=== PATIENT | male | born 1940 | race Caucasian/White ===

== ENCOUNTER 2016-07-11 06:16 | Outpatient (CLI) | payer MEDICARE, OTHER | END 2016-07-11 06:17 | disposition home or self-care (01) | DX: E11.65 Type 2 diabetes mellitus with hyperglycemia (principal); Z79.899 Other long term (current) drug therapy ==

== ENCOUNTER 2017-01-15 08:14 | Outpatient (CLI) | payer MEDICARE, OTHER ==
[2017-01-15 15:25] LABS: BILIRUBIN,URINE NEGATIVE (NEGATIVE); PH,URINE 5.5 PH (5.0-7.5); UA w/ MICROSCOPIC CHARGE YES
[2017-01-15 15:47] LABS: UR CULTURE IF IND NOT INDICATED; WBC,URINE 0-3 /HPF (0-3)
== END 2017-01-15 08:15 ==
LOC: LAB.R 08:14
PROVIDERS: ATTEND Physician Assistant Medical
DX: R31.9 Hematuria, unspecified (principal)
CPT/HCPCS: 81001; 81003; 87086

== ENCOUNTER 2017-01-17 16:15 | Outpatient (CLI) | payer MEDICARE, OTHER | END 2017-01-17 16:16 | disposition home or self-care (01) | LOC: LAB.R 16:15 | PROVIDERS: ATTEND Physician Assistant Medical | DX: R31.9 Hematuria, unspecified (principal) | CPT/HCPCS: 87086 ==

== ENCOUNTER 2017-02-20 09:20 | Outpatient (CLI) | payer MEDICARE, OTHER | END 2017-02-20 09:21 | disposition home or self-care (01) | LOC: SC 09:20 | PROVIDERS: ATTEND Internal Medicine Pulmonary Disease | DX: G47.33 Obstructive sleep apnea (adult) (pediatric) (principal) | CPT/HCPCS: 99203; G0463; 99212 ==

== ENCOUNTER 2017-04-02 20:26 | Outpatient (CLI) | payer MEDICARE, OTHER | END 2017-04-02 20:27 | disposition home or self-care (01) | LOC: SC 20:26 | PROVIDERS: ATTEND Internal Medicine Pulmonary Disease | DX: G47.33 Obstructive sleep apnea (adult) (pediatric) (principal); G47.61 Periodic limb movement disorder; Z68.32 Body mass index [BMI] 32.0-32.9, adult | CPT/HCPCS: 95810 ==

== ENCOUNTER 2017-04-18 13:17 | Outpatient (CLI) | payer MEDICARE, OTHER | END 2017-04-18 13:18 | disposition home or self-care (01) | LOC: SC 13:17 | PROVIDERS: ATTEND Nurse Practitioner Family | DX: G47.33 Obstructive sleep apnea (adult) (pediatric) (principal); G47.61 Periodic limb movement disorder | CPT/HCPCS: 99214; G0463; 99212 ==

== ENCOUNTER 2017-06-12 10:47 | Outpatient (CLI) | payer MEDICARE, OTHER | END 2017-06-12 10:48 | disposition home or self-care (01) | LOC: SC 10:47 | PROVIDERS: ATTEND Nurse Practitioner Family | DX: G47.33 Obstructive sleep apnea (adult) (pediatric) (principal) | CPT/HCPCS: 99214; G0463; 99212 ==

== ENCOUNTER 2017-07-17 10:36 | Outpatient (CLI) | payer MEDICARE, OTHER | END 2017-07-17 10:37 | disposition home or self-care (01) | LOC: SC 10:36 | PROVIDERS: ATTEND Nurse Practitioner Family | DX: G47.33 Obstructive sleep apnea (adult) (pediatric) (principal) | CPT/HCPCS: 99214; G0463; 99212 ==

== ENCOUNTER 2017-09-19 10:55 | Outpatient (CLI) | payer MEDICARE, OTHER | END 2017-09-19 10:56 | disposition home or self-care (01) | LOC: SC 10:55 | PROVIDERS: ATTEND Nurse Practitioner Family | DX: G47.33 Obstructive sleep apnea (adult) (pediatric) (principal) | CPT/HCPCS: 99214; G0463; 99212 ==

== ENCOUNTER 2017-10-31 13:36 | Outpatient (CLI) | payer MEDICARE, OTHER | END 2017-10-31 13:37 | disposition home or self-care (01) | LOC: SC 13:36 | PROVIDERS: ATTEND Nurse Practitioner Family | DX: G47.33 Obstructive sleep apnea (adult) (pediatric) (principal) | CPT/HCPCS: 99214; G0463; 99212 ==

== ENCOUNTER 2017-12-12 08:00 | Outpatient (CLI) | payer MEDICARE, OTHER | END 2017-12-12 08:01 | disposition home or self-care (01) | LOC: LAB.R 08:00 | PROVIDERS: ATTEND Internal Medicine | DX: R31.9 Hematuria, unspecified (principal); E11.9 Type 2 diabetes mellitus without complications; Z85.528 Personal history of other malignant neoplasm of kidney | CPT/HCPCS: 87086 ==

== ENCOUNTER 2017-12-12 11:22 | Outpatient (CLI) | payer MEDICARE, OTHER ==
[2017-12-12 11:52] LABS: BASOPHILS # (AUTO) 0.1 10^3/uL (0.0-0.1); BASOPHILS % (AUTO) 0.8 %; EOSINOPHILS # (AUTO) 0.3 10^3/uL (0.0-0.7); EOSINOPHILS % (AUTO) 4.1 %; HGB - HEMOGLOBIN 10.8 g/dL (14.0-18.0); LYMPHOCYTES # (AUTO) 0.9 10^3/uL (1.5-3.5); LYMPHOCYTES % (AUTO) 13.5 %; MEAN CORPUSCULAR HEMOGLOBIN 24.5 pg (27.0-31.0); MEAN CORPUSCULAR HGB CONC 32.1 g/dL (32.0-36.0); MEAN CORPUSCULAR VOLUME 76.5 fL (80.0-94.0); MEAN PLATELET VOLUME 7.8 fL (7.4-11.4); MONOCYTES # (AUTO) 0.4 10^3/uL (0.0-1.0); MONOCYTES % (AUTO) 6.6 %; NEUTROPHILS # (AUTO) 5.1 10^3/uL (1.5-6.6); PLT - PLATELET COUNT 262 10^3/uL (130-450); RED BLOOD COUNT 4.42 10^6/uL (4.70-6.10); RED CELL DISTRIBUTION WIDTH 15.9 % (12.0-15.0); WHITE BLOOD COUNT 6.8 x10^3/uL (4.8-10.8)
[2017-12-12 12:28] LABS: ALBUMIN 3.6 g/dL (3.2-5.5); ALBUMIN/GLOBULIN RATIO 1.1 (1.0-2.2); BILIRUBIN,TOTAL 0.3 mg/dL (0.2-1.0); CREATININE 1.6 mg/dL (0.6-1.2); TOTAL PROTEIN 6.8 g/dL (6.7-8.2)
[2017-12-12 13:32] LABS: HB2 TOTAL 12.2 g/dL; HEMOGLOBIN A1C 0.88 g/dL; HEMOGLOBIN A1C % 8.8 % (4.6-6.2)
== END 2017-12-12 11:23 | disposition home or self-care (01) ==
LOC: LAB 11:22
PROVIDERS: ATTEND Internal Medicine
DX: R31.9 Hematuria, unspecified (principal); E11.9 Type 2 diabetes mellitus without complications; Z85.528 Personal history of other malignant neoplasm of kidney
CPT/HCPCS: 36415; 80053; 83036; 85025; 87086

== ENCOUNTER 2018-01-01 10:12 | Outpatient (CLI) | payer MEDICARE, OTHER | END 2018-01-01 10:13 | disposition home or self-care (01) | LOC: SC 10:12 | PROVIDERS: ATTEND Nurse Practitioner Family | DX: G47.33 Obstructive sleep apnea (adult) (pediatric) (principal) | CPT/HCPCS: 99214; G0463; 99212 ==

== ENCOUNTER 2018-03-12 09:40 | Outpatient (CLI) | payer MEDICARE, OTHER | END 2018-03-12 09:41 | disposition home or self-care (01) | LOC: SC 09:40 | PROVIDERS: ATTEND Nurse Practitioner Family | DX: G47.33 Obstructive sleep apnea (adult) (pediatric) (principal) | CPT/HCPCS: 99214; G0463; 99212 ==

== ENCOUNTER 2018-04-30 06:16 | Outpatient (CLI) | payer MEDICARE, OTHER ==
[2018-04-30 06:37] LABS: CALCIUM 8.9 mg/dL (8.5-10.3); CREATININE 0.8 mg/dL (0.6-1.2)
[2018-04-30 06:44] LABS: HB2 TOTAL 14.1 g/dL; HEMOGLOBIN A1C 1.19 g/dL; HEMOGLOBIN A1C % 9.9 % (4.6-6.2)
== END 2018-04-30 06:17 | disposition home or self-care (01) ==
LOC: LAB 06:16
PROVIDERS: ATTEND Internal Medicine
DX: E11.9 Type 2 diabetes mellitus without complications (principal); Z79.899 Other long term (current) drug therapy
CPT/HCPCS: 36415; 80048; 83036

== ENCOUNTER 2018-06-04 10:57 | Outpatient (CLI) | payer MEDICARE, OTHER | END 2018-06-04 10:58 | disposition home or self-care (01) | LOC: SC 10:57 | PROVIDERS: ATTEND Nurse Practitioner Family | DX: G47.33 Obstructive sleep apnea (adult) (pediatric) (principal) | CPT/HCPCS: 99214; G0463; 99212 ==

== ENCOUNTER 2018-08-06 14:44 | Outpatient (CLI) | payer MEDICARE, OTHER | END 2018-08-06 14:45 | disposition home or self-care (01) | LOC: SC 14:44 | PROVIDERS: ATTEND Nurse Practitioner Family | DX: G47.33 Obstructive sleep apnea (adult) (pediatric) (principal) | CPT/HCPCS: 99215; G0463; 99212 ==

== ENCOUNTER 2018-09-25 13:01 | Outpatient (CLI) | payer MEDICARE, OTHER | END 2018-09-25 13:02 | disposition home or self-care (01) | LOC: SC 13:01 | PROVIDERS: ATTEND Nurse Practitioner Family | DX: G47.33 Obstructive sleep apnea (adult) (pediatric) (principal) | CPT/HCPCS: 99214; G0463; 99212 ==

== ENCOUNTER 2018-10-02 14:44 | Outpatient (CLI) | payer MEDICARE, OTHER ==
[2018-10-02 15:14] LABS: CALCIUM 9.2 mg/dL (8.5-10.3); CREATININE 0.9 mg/dL (0.6-1.2)
[2018-10-02 15:51] LABS: BASOPHILS # (AUTO) 0.1 10^3/uL (0.0-0.1); BASOPHILS % (AUTO) 0.8 %; EOSINOPHILS # (AUTO) 0.3 10^3/uL (0.0-0.7); EOSINOPHILS % (AUTO) 3.8 %; HGB - HEMOGLOBIN 13.6 g/dL (14.0-18.0); LYMPHOCYTES # (AUTO) 1.3 10^3/uL (1.5-3.5); LYMPHOCYTES % (AUTO) 15.8 %; MEAN CORPUSCULAR HEMOGLOBIN 26.6 pg (27.0-31.0); MEAN CORPUSCULAR HGB CONC 32.7 g/dL (32.0-36.0); MEAN CORPUSCULAR VOLUME 81.5 fL (80.0-94.0); MEAN PLATELET VOLUME 8.7 fL (7.4-11.4); MONOCYTES # (AUTO) 0.4 10^3/uL (0.0-1.0); MONOCYTES % (AUTO) 5.4 %; NEUTROPHILS % (AUTO) 74.2 %; PLT - PLATELET COUNT 196 10^3/uL (130-450); RED BLOOD COUNT 5.11 10^6/uL (4.70-6.10); RED CELL DISTRIBUTION WIDTH 16.3 % (12.0-15.0)
[2018-10-02 16:18] LABS: HB2 TOTAL 14.7 g/dL; HEMOGLOBIN A1C 0.81 g/dL; HEMOGLOBIN A1C % 7.2 % (4.6-6.2)
== END 2018-10-02 23:59 | disposition home or self-care (01) ==
LOC: LAB 14:44
PROVIDERS: ATTEND Family Medicine
DX: E11.40 Type 2 diabetes mellitus with diabetic neuropathy, unspecified (principal)
CPT/HCPCS: 36415; 80048; 83036; 85025

== ENCOUNTER 2018-12-04 11:17 | Outpatient (CLI) | payer MEDICARE, OTHER | END 2018-12-04 11:18 | disposition home or self-care (01) | LOC: SC 11:17 | PROVIDERS: ATTEND Nurse Practitioner Family | DX: G47.33 Obstructive sleep apnea (adult) (pediatric) (principal) | CPT/HCPCS: 99214; G0463; 99212 ==

== ENCOUNTER 2019-03-25 13:16 | Outpatient (CLI) | payer MEDICARE, OTHER ==
[2019-03-25 14:19] VITALS: BP 130/56
--- NOTE | 2019-03-25 14:19 | SLEEP CARE CONSULTATION ---
Information from patient questionnaire entered by Celi Ellington. I have reviewed and concur with the information entered by Celi Ellington. This document represents the service I personally performed and the decisions made by me, Jennifer Lyn, RN, MSN, BORING MACHINE FEEDER. History of Present Illness Previous diagnosis: Mild, Obstructive Sleep Apnea-Hypopnea Syndrome AHI: 6.2 Reason for follow up: other (2 month with pressure change) Equipment type: CPAP Equipment obtained from: [employer] Mask style: Nasal pillows Mask brand: Resmed Backup mask available: Yes Last cushion change: 2 weeks ago Prior sleep studies: Yes Year and Where: 2016 [facility] CPAP Compliance Data - Data Reviewed with Patient Average duration of nightly device use: 7h 25m Compliance rate %: 100 Current pressure setting (cmH2O): 11-13 Humidity settin Heated hose settin Average residual AHI: 10 Central apnea: 0.9 Obstructive apnea: 1.4 Hypopnea: 7.7 Average large leak: 26m 34s Subjective Patient concerns: denies: aerophagia, mask discomfort, air blowing in eyes, mask leak noise, condensation in mask/hose, nasal congestion, dry mouth, nose, throat, epistaxis Observed to snore while using device: No Current pressure setting perceived as: comfortable On therapy, patient: reports: sleeping better, awakening more refreshed, being more awake and alert during the day, more rested overall. denies: drowsiness while driving Initial [place] Sleepiness Scale score: 12 Current [place] Sleepiness Scale score: 6 Allergies and Home Medications Known drug allergies: Yes (see list ) Home medication list reviewed: Yes Allergy and home medication list: Medication Name (generic/name brand) Strength & Dosage Lantus Solostar Inject 30units daily at bedtime Metformin 1000mg tab one twice daily Proscar 5mg tab one daily [place]-3 with CoQ10 and Resverital 300mg cap two daily Magnesium 250mg tab two HS MVI Mens 3 tabs daily Berberine Complex, Chromium + Cinnamon 500 mg cap one 3 times daily Vitamin D3 2000IU cap one three times daily Natto Tab two twice daily - out Cinulin + D3 Tab one daily Review of Systems Review of systems same as previous: No (right hip pain - under evaluation) Physical Exam Blood Pressure: 130/56 Cuff size: long Heart Rate: 52 O2 Saturation: 95 Height: 6 ft 3 in Weight: 291 lb 6.4 oz (just went camping with lots of food) Weight change since last visit: gained 8 pounds Body Mass Index: 36.4 BMI Classification: Obesity Class 2 Impression and Plan 1. Obstructive Sleep Apnea-Hypopnea Syndrome, mild, with good treatment compliance and better apnea control. On CPAP therapy, the patient has better sleep quality and is more rested overall. The residual AHI reduced from 12.4 to 10 with recent CPAP pressure adjustment. I will adjust the autoCPAP pressure further to [id number]. Patient advised to contact me if uncomfortable. I will also adjust the ramp to be 1/2 of the prescribed pressure at 7cmH20 and instructed patient how to adjust further for comfort. In addition, I answered questions on how to adjust the heated hose and humidity to comfort on a sample device with rationale explained. Printed instructions given. For supply concerns, he was given supply replacement list was given and questions answered. He is advised to contact [facility] and ask to be put on the supply reminder system. He gained weight at his last camping excursion and advised he is now class 2 obesity. His weight gain can increase his apnea risk and CPAP pressure requirements as well as overall health. He is advised to lose weight and agreed with plan. Patient's apnea severity and rationale for treatment to reduce apnea, improve sleep quality and reduce cardiovascular and cerebrovascular events was reviewed. I also reviewed the benefit of consistent device use of CPAP for his diabetes. * * Change CPAP pressure to 15-18 cmH2O * Contact [facility] for supplies * Adjust humidity and heated hose as needed * Notify me if snoring with mask or feeling that the pressure is too much or too little * Attempt to lose weight * Contact [facility] re supplies * Return for follow up in 1-2months , or sooner if concerns arise I spent 100% of this 27 minute visit face to face with the patient with greater than 50% of this was spent time counseling the patient and coordination of care.
== END 2019-03-25 13:17 | disposition home or self-care (01) ==
LOC: SC 13:16
PROVIDERS: ATTEND Nurse Practitioner Family
DX: G47.33 Obstructive sleep apnea (adult) (pediatric) (principal); E66.9 Obesity, unspecified; Z68.36 Body mass index [BMI] 36.0-36.9, adult
CPT/HCPCS: 99214; G0463; 99212

== ENCOUNTER 2019-05-07 07:42 | Outpatient (CLI) | payer MEDICARE, OTHER ==
[2019-05-07 08:25] LABS: BASOPHILS # (AUTO) 0.1 10^3/uL (0.0-0.1); BASOPHILS % (AUTO) 0.9 %; EOSINOPHILS # (AUTO) 0.2 10^3/uL (0.0-0.7); EOSINOPHILS % (AUTO) 3.9 %; HGB - HEMOGLOBIN 14.4 g/dL (14.0-18.0); LYMPHOCYTES # (AUTO) 0.9 10^3/uL (1.5-3.5); LYMPHOCYTES % (AUTO) 17.5 %; MEAN CORPUSCULAR HGB CONC 31.3 g/dL (32.0-36.0); MEAN CORPUSCULAR VOLUME 86.1 fL (80.0-94.0); MEAN PLATELET VOLUME 10.9 fL (7.4-11.4); MONOCYTES # (AUTO) 0.4 10^3/uL (0.0-1.0); MONOCYTES % (AUTO) 7.2 %; NEUTROPHILS # (AUTO) 3.8 10^3/uL (1.5-6.6); NEUTROPHILS % (AUTO) 69.8 %; PLT - PLATELET COUNT 181 10^3/uL (130-450); RED BLOOD COUNT 5.34 10^6/uL (4.70-6.10); WHITE BLOOD COUNT 5.4 x10^3/uL (4.8-10.8)
[2019-05-07 08:35] LABS: ALBUMIN/GLOBULIN RATIO 1.3 (1.0-2.2); ALKALINE PHOSPHATASE 72 IU/L (42-121); ALT ALANINE AMINOTRANSFERASE 16 IU/L (10-60); AST ASPARTATE AMINOTRANSFERASE 15 IU/L (10-42); BILIRUBIN,TOTAL 0.7 mg/dL (0.2-1.0); BUN - BLOOD UREA NITROGEN 24 mg/dL (6-20); CALCIUM 9.1 mg/dL (8.5-10.3); CARBON DIOXIDE - CO2 32 mmol/L (21-32); CHLORIDE 99 mmol/L (101-111); CHOL/HDL RATIO 4.4 (<5.0); CHOLESTEROL 155 mg/dL; CREATININE 0.8 mg/dL (0.6-1.2); GFR - MDRD 94 (>89); GLUCOSE 185 mg/dL (70-100); HDL CHOLESTEROL 35 mg/dL; LDL CHOLESTEROL,CALCULATED 98 mg/dL; LDL/HDL RATIO 2.8 (<3.6); SODIUM 139 mmol/L (135-145); VLDL CHOLESTEROL 22 mg/dL
[2019-05-07 08:46] LABS: HB2 TOTAL 15.3 g/dL; HEMOGLOBIN A1C 1.13 g/dL; HEMOGLOBIN A1C % 8.9 % (4.6-6.2); THYROID STIMULATING HORMONE 4.46 uIU/mL (0.34-5.60)
[2019-05-07 08:49] LABS: FREE T4 (FREE THYROXINE) 0.76 ng/dL (0.58-1.64)
[2019-05-07 09:45] LABS: FREE T3 3.35 pg/mL (2.5-3.9)
[2019-05-07 14:54] LABS: PSA TOTAL 1.18 ng/mL (0.000-2.000)
== END 2019-05-07 07:43 | disposition home or self-care (01) ==
LOC: LAB 07:42
PROVIDERS: ATTEND Family Medicine
DX: E11.49 Type 2 diabetes mellitus with other diabetic neurological complication (principal); E11.65 Type 2 diabetes mellitus with hyperglycemia; N40.0 Benign prostatic hyperplasia without lower urinary tract symptoms; Z85.528 Personal history of other malignant neoplasm of kidney; G47.30 Sleep apnea, unspecified
CPT/HCPCS: 36415; 80053; 80061; 83036; 83721; 84153; 84439; 84443; 84481; 85025

== ENCOUNTER 2019-05-27 13:41 | Outpatient (CLI) | payer MEDICARE, OTHER ==
[2019-05-27 14:56] VITALS: BP 130/60
--- NOTE | 2019-05-27 14:56 | SLEEP CARE CONSULTATION ---
Information from patient questionnaire entered by Verna Grey. I have reviewed and concur with the information entered by Verna Grey. This document represents the service I personally performed and the decisions made by me, Jennifer Lyn, RN, MSN, PROVIDER RELATIONS REP. History of Present Illness Previous diagnosis: Mild (when re- evaluated and moderate in 2008 with similar weight but apnea severe supine . ), Obstructive Sleep Apnea-Hypopnea Syndrome AHI: 6.2 Reason for follow up: other (2 month) Equipment type: CPAP Equipment obtained from: [employer] Mask style: Nasal pillows Backup mask available: Yes Last cushion change: 2 weeks ago CPAP Compliance Data - Data Reviewed with Patient Average duration of nightly device use: 7.45 Compliance rate %: 100 (60 days) Current pressure setting (cmH2O): 15-18 Humidity settin Heated hose settin Average residual AHI: 9.0 Central apnea: 0.3 Obstructive apnea: 0.5 Hypopnea: 8.2 Average large leak: 3 hr 7 sec Subjective Patient concerns: reports: mask discomfort (one time with medium pillow and too tight of mask ), mask leak noise (having difficulty getting mask to seal as starts treatment), other (spouse has noted him burping in his sleep inter mittently. ). denies: aerophagia, air blowing in eyes, condensation in mask/hose, nasal congestion, dry mouth, nose, throat, epistaxis Observed to snore while using device: Yes (occasionally ) Current pressure setting perceived as: too high On therapy, patient: reports: sleeping better, awakening more refreshed, being more awake and alert during the day, more rested overall. denies: drowsiness while driving Initial [place] Sleepiness Scale score: 12 Current [place] Sleepiness Scale score: 4 Allergies and Home Medications Known drug allergies: Yes Home medication list reviewed: Yes (no changes except insulin increased 35 untils daily, stopped Cinnamon combo) Review of Systems Review of systems same as previous: Yes Physical Exam Blood Pressure: 130/60 Cuff size: long Heart Rate: 51 O2 Saturation: 97 Height: 6 ft 3 in Weight: 293 lb 12.8 oz Weight change since last visit: gained 2 pounds Body Mass Index: 36.7 BMI Classification: Obesity Class 2 Impression and Plan 1. Obstructive Sleep Apnea-Hypopnea Syndrome, mild apnea but severe supine, with good treatment compliance and slightly elevated residual apnea control. On CPAP therapy, the patient has better sleep quality and is more rested overall. The new pressure range only increased mask leaks significantly and reduced residual was only slightly. The pressure is also uncomfortable at times and he is waking to oral venting and burping. Thus after much review of his past visit notes and pressures,I will reduce his CPAP pressure to 10-12 cmH20. He is to contact me if continued burping or oral venting or if pressure change uncomfortable. The patient obtained a CPAP pillow but it did not reduce his mask leaks as had hoped. He has tried to tighten mask with new mask clips. He tried a medium nasal pillow but woke with sore nasal septum. He cleans mask daily which will assist with mask seal and is changing his mask cushions regularly now. I also discussed with him again that if unable to get him to goal with pressure needs, a manual titration study is advised. He seemed more receptive to this gena a if needed. During a titration study, the mask can also be checked and changed for better fit. It is hoped the above measures will resolve burping and reduce residual AHI and mask leaks. I also again reviewed losing weight to reduce apnea severity and CPAP pressure needs. Patient's apnea severity and rationale for treatment to reduce apnea, improve sleep quality and reduce cardiovascular and cerebrovascular events was reviewed. I also reviewed the benefit of consistent device use of CPAP for his diabetes. * * Change autoCPAP pressure to 10-12 cmH2O * Notify me if snoring with mask or feeling that the pressure is too much or too little * Attempt to lose weight * Call this office if any problems using CPAP * Return for follow up in 1-2 months , or sooner if concerns arise Time Spent with Patient (minutes): 33 I spent 100% of this visit face to face with the patient with greater than 50% of this was spent time counseling the patient and coordination of care.
== END 2019-05-27 13:42 | disposition home or self-care (01) ==
LOC: SC 13:41
PROVIDERS: ATTEND Nurse Practitioner Family
DX: G47.33 Obstructive sleep apnea (adult) (pediatric) (principal); E66.9 Obesity, unspecified; Z68.36 Body mass index [BMI] 36.0-36.9, adult
CPT/HCPCS: 99214; G0463; 99212

== ENCOUNTER 2019-05-31 10:54 | Outpatient (CLI) | payer MEDICARE, OTHER ==
--- NOTE | 2019-05-31 22:12 | XRAY Report ---
Reason: LOW BACK PAIN Procedure Date: 05/31/2019 Accession Number: [id number] / [id number] Procedure: XR - Lumbar Spine 2 View CPT Code: Final Report FULL RESULT: EXAM: LUMBOSACRAL SPINE RADIOGRAPHY EXAM DATE: 05/31/2019 11:12 AM. CLINICAL HISTORY: LOW BACK PAIN. COMPARISONS: ABDOMEN/PELVIS W/ 01/05/2016 7:07 PM. TECHNIQUE: 3 views. FINDINGS: Alignment: Grade 1 spondylolisthesis at L5-S1. Mild lumbar dextroscoliosis. Bones: Five [id number] lumbar vertebral bodies are present. No fracture seen. Bilateral L5 pars defects. Disks: Mild to moderate degenerative disk disease at all levels. Facets: Degenerative joint disease in the lower lumbar facet joints. Sacroiliac Joints: Unremarkable. Soft Tissues: Density in the urinary bladder which could represent excreted contrast or milk of calcium. IMPRESSION: 1. Mild lumbar dextroscoliosis. 2. Bilateral L5 pars defects with grade 1 spondylolisthesis at L5-S1. 3. Multilevel degenerative disk disease and degenerative joint disease. RADIA
== END 2019-05-31 10:55 | disposition home or self-care (01) ==
LOC: DI 10:54
PROVIDERS: ATTEND Nurse Practitioner
DX: M51.36 Other intervertebral disc degeneration, lumbar region (principal); M43.06 Spondylolysis, lumbar region; M47.816 Spondylosis without myelopathy or radiculopathy, lumbar region
CPT/HCPCS: 72100

== ENCOUNTER 2019-06-14 12:17 | Outpatient (CLI) | payer MEDICARE, OTHER ==
--- NOTE | 2019-06-14 21:24 | MRI Report ---
Reason: BACK PAIN LUMBAR WITH RADICULOPATHY,HIP JOINT PX R Procedure Date: 06/14/2019 Accession Number: [id number] / [id number] Procedure: MRI - Lumbar Spine W/O CPT Code: Final Report FULL RESULT: EXAM: MRI LUMBAR SPINE WITHOUT CONTRAST EXAM DATE: 06/14/2019 01:25 PM. CLINICAL HISTORY: Increasing low back pain radiating to the right hip. COMPARISON: LUMBAR SPINE 2 VIEW 05/31/2019 11:06 AM ABDOMEN/PELVIS W/ 01/05/2016 7:07 PM. TECHNIQUE: Multiplanar, multisequence T1-weighted and fluid-sensitive sequences of the lumbar spine from the lower portion of T11 to S1 without contrast. Other: None. FINDINGS: Spinal Canal: The conus terminates at L2. The conus medullaris is unremarkable. Alignment: Retrolisthesis at L2-L3 measures 1-2 mm, stable. Grade 1 anterolisthesis at L5-S1 measures 2-3 mm, also stable. Bone Marrow: Five [id number] lumbar vertebral bodies are confirmed on the CT. Mild type I Modic endplate changes are suggested on the right at L5-S1. Small chronic Schmorl's nodes are seen at T11-T12 and L2-L3. Disk Levels/Facets: T11-T12: There is mild right foraminal narrowing due to facet arthropathy. The spinal canal and left foramen are patent. T12-L1: Unremarkable. L1-L2: There is mild right foraminal narrowing due to facet arthropathy. The spinal canal and left foramen are patent. L2-L3: A disk bulge and ligamentum flavum infolding result in mild spinal canal stenosis. There is mild bilateral foraminal narrowing. L3-L4: Ligamentum flavum infolding of facet arthropathy result in mild spinal canal stenosis. There is mild bilateral foraminal narrowing, worse on the right. L4-L5: A disk bulge with facet arthropathy and ligamentum flavum infolding result in mild spinal canal stenosis. Mild fluid is present in the facet joints. There is mild bilateral foraminal narrowing. L5-S1: A disk bulge with facet arthropathy and ligamentum flavum infolding result in mild spinal canal stenosis. There is moderate right and mild left foraminal narrowing. The spinal canal is patent. Musculature: There is mild diffuse fatty atrophy of the posterior paraspinal muscles without intramuscular edema. Other: Moderate size bilateral renal cysts are noted. IMPRESSION: 1. Normal conus medullaris and cauda equina. 2. Mild type I Modic endplate changes are seen on the right at L5-S1. 3. Moderate multilevel degenerative changes are present but there is no high-grade spinal canal stenosis. 4. Moderate right foraminal narrowing is also noted at L5-S1. Comment: The following findings are so common in adults without low back pain that while we report their presence, they must be interpreted with caution and in the context of the clinical situation. (Reference Northk et al, Spine 2001) Prevalence of findings in patients without low back pain: Disk degeneration (any evidence): 92% Disk desiccation/T2 signal loss: 83% Disk height loss: 56% Disk bulge: 64% Disk protrusion: 32% Annular tear/high intensity zone: 38% RADIA
--- NOTE | 2019-06-15 04:48 | XRAY Report ---
Reason: BACK PAIN LUMBAR WITH RADICULOPATHY,HIP JOINT PX R Procedure Date: 06/14/2019 Accession Number: [id number] / [id number] Procedure: XR - Hip w/Pelvis 2-3V RT CPT Code: Final Report FULL RESULT: EXAM: RIGHT HIP RADIOGRAPHY EXAM DATE: 06/14/2019 12:25 PM. CLINICAL HISTORY: BACK PAIN LUMBAR WITH RADICULOPATHY, HIP JOINT PX R. COMPARISON: None. TECHNIQUE: 2 views. FINDINGS: Mild narrowing of both hip joints is seen with small osteophyte formation. The sacroiliac joints are symmetric. There is no evidence of acute fracture or dislocation. The bone mineralization is normal. No focal soft tissue swelling is seen. IMPRESSION: Mild degenerative changes in the hip without evidence of acute fracture or dislocation. RADIA
== END 2019-06-14 12:18 | disposition home or self-care (01) ==
LOC: DI 12:17
PROVIDERS: ATTEND Nurse Practitioner
DX: M51.16 Intervertebral disc disorders with radiculopathy, lumbar region (principal); M48.061 Spinal stenosis, lumbar region without neurogenic claudication; M16.11 Unilateral primary osteoarthritis, right hip
CPT/HCPCS: 72148

== ENCOUNTER 2019-07-22 13:59 | Outpatient (CLI) | payer MEDICARE, OTHER ==
[2019-07-22 14:49] VITALS: BP 142/68
--- NOTE | 2019-07-22 14:49 | SLEEP CARE CONSULTATION ---
Information from patient questionnaire entered by Celi Ellington. I have reviewed and concur with the information entered by Celi Ellington. This document represents the service I personally performed and the decisions made by me, Jennifer Lyn, RN, MSN, MANAGER OF PATIENT. History of Present Illness Previous diagnosis: Mild, Obstructive Sleep Apnea-Hypopnea Syndrome AHI: 6.2 Reason for follow up: other (2 month with pressure change) Equipment type: CPAP Equipment obtained from: [employer] Mask style: Nasal pillows Backup mask available: Yes (old mask ) Last cushion change: a couple of weeks ago Prior sleep studies: Yes HPI additional information: The CPAP pressure was reduced to [id number] as previous pressure was causing significant mask leaks. Current pressure much more comfortable and not waking to mask leaks as before. Aerophagia was resolved with new pressure. CPAP Compliance Data - Data Reviewed with Patient Average duration of nightly device use: 7H 35M Compliance rate %: 100 Current pressure setting (cmH2O): 10-12 Humidity settin Heated hose settin Average residual AHI: 11.1 Central apnea: 1.2 Obstructive apnea: 1.4 Hypopnea: 8.5 Average large leak: 31M 8S Subjective Patient concerns: denies: aerophagia, mask discomfort, air blowing in eyes, mask leak noise, condensation in mask/hose, nasal congestion, dry mouth, nose, throat , epistaxis Observed to snore while using device: Yes (once only ) Current pressure setting perceived as: comfortable On therapy, patient: reports: sleeping better, awakening more refreshed, being more awake and alert during the day, more rested overall. denies: drowsiness while driving Initial [place] Sleepiness Scale score: 12 Current [place] Sleepiness Scale score: 6 Allergies and Home Medications Known drug allergies: Yes (hydrocodone - mild) Home medication list reviewed: Yes (see changes noted stopped many supplements etc) Allergy and home medication list: Medication Name (generic/name brand) Strength & Dosage Lantus Solostar Inject 20units daily at bedtime Metformin 1000mg tab one twice daily Proscar 5mg tab one daily [place]-3 with CoQ10 and Resverital 300mg cap two daily Magnesium 250mg tab 2 in AM and 2 PM MVI Mens 3 tabs daily Vitamin D3 2000IU cap one three times daily Review of Systems Review of systems same as previous: No (exacerbation of low back and hip pain / studies and PT) Physical Exam Blood Pressure: 142/68 Cuff size: wrist Heart Rate: 55 O2 Saturation: 96 Height: 6 ft 3 in Weight: 290 lb 9.6 oz Weight change since last visit: lost 3 pounds Body Mass Index: 36.3 BMI Classification: Obese Impression and Plan 1. Obstructive Sleep Apnea-Hypopnea Syndrome, mild with severe supine, with good treatment compliance and continued elevation of residual apnea. On CPAP therapy, the patient has better sleep quality and is more rested overall. Reduction of autoCPAP range resolved aerophagia and reduced mask leaks significantly but residual AHI is now 11 instead of 9. Thus after review again of his past CPAP range results, sleep studies, it was decided to try [id number] to see if any better. Patient does not want to have sleep study at this time. He is benefiting from treatment and residual is in mild range which is not associated with risks of moderate to severe apnea. He is to contact me if the pressure range is uncomfortable. I showed him how to track his mask fit as well as his AHI on a sample CPAP. His mask fit is better with lower pressure and his goal is to have at least a 90% mask fit. His goal of AHI is less than 5. Patient's apnea severity and rationale for treatment to reduce apnea, improve sleep quality and reduce cardiovascular and cerebrovascular events was reviewed. I also reviewed the benefit of consistent device use of CPAP for hypertension, diabetes. * * Change CPAP pressure to 12-14 cmH2O * Notify me if snoring with mask or feeling that the pressure is too much or too little * Attempt to lose weight * Call this office if any problems using CPAP * Return for follow up in 2-3 months, or sooner if concerns arise Time Spent with Patient (minutes): 35 I spent 100% of this visit face to face with the patient with greater than 50% of this was spent time counseling the patient and coordination of care.
== END 2019-07-22 14:00 | disposition home or self-care (01) ==
LOC: SC 13:59
PROVIDERS: ATTEND Nurse Practitioner Family
DX: G47.33 Obstructive sleep apnea (adult) (pediatric) (principal); E66.9 Obesity, unspecified; Z68.36 Body mass index [BMI] 36.0-36.9, adult
CPT/HCPCS: 99212; 99214

== ENCOUNTER 2020-01-28 13:38 | Outpatient (CLI) | payer MEDICARE, OTHER ==
--- NOTE | 2020-01-28 14:10 | SLEEP CARE CONSULTATION ---
Information from patient questionnaire entered by Verna Grey. I have reviewed and concur with the information entered by Verna Grey. This document represents the service I personally performed and the decisions made by me, Jennifer Lyn, RN, MSN, ASSET ADMINISTRATOR. History of Present Illness Service Date and Time: 01/28/2020 1338 Previous diagnosis: Moderate, Obstructive Sleep Apnea-Hypopnea Syndrome AHI: 26.4 (in 2008) Reason for follow up: other (2 month with pressure change) Equipment type: CPAP Equipment obtained from: [employer] Mask style: Nasal pillows Backup mask available: Yes (old mask ) Last cushion change: a couple weeks ago Prior sleep [facility]: Yes [facility] Type of Sleep Study: Polysomnography HPI additional information: He did not get a new mask fitting. He just obtained new supplies and has not yet opened new mask. Sleep Study - Results Prior sleep studies: Yes [facility] CP[facility] Compliance Data - Data Reviewed with Patient Average duration of nightly device use: 7.25 Compliance rate %: 93.3 (60 days) Current pressure setting (cmH2O): 12-14 Humidity settin Heated hose settin Average residual AHI: 10.8 Average large leak: 1 hr 32 min 59 sec Subjective Patient concerns: reports: mask leak noise (intermittently ), nasal congestion (mild). denies: aerophagia, mask discomfort, air blowing in eyes, condensation in mask/hose, dry mouth, nose, throat, epistaxis Observed to snore while using device: No Current pressure setting perceived as: comfortable (likes current pressure the best so far) On therapy, patient: reports: sleeping better, awakening more refreshed, being more awake and alert during the day, more rested overall. denies: drowsiness while driving Initial [place] Sleepiness Scale score: 12 (in 2009) Allergies and Home Medications Known drug allergies: Yes Home medication list reviewed: No (no changes ) Review of Systems Review of systems same as previous: No (cortisone shots for back pain/ bone spurs surgery planned) Physical Exam Height: 6 ft 3 in Weight: 278 lb Body Mass Index: 34.7 BMI Classification: Obese Impression and Plan 1. Obstructive Sleep Apnea-Hypopnea Syndrome, moderate, with good treatment compliance and mild elevation of residual AHI. apnea control. On CPAP therapy, the patient has better sleep quality and is more rested overall. The patient is comfortable with this pressure range but residual AHI is no better than last visit that appears to be due to continued and worsened mask leaks. The patient admits to waking with mask leaks from the nose piece not setting up enough in nares and adjusts with resolution. However, he does not wake often to his mask leaks so this is not corrected often to have any improvement. Thus I again suggested a mask refitting with rationale discussed and he agreed with plan. He was just sent new supplies so he is advised not to open and contact [facility] for a mask refitting for new mask style or better fit of current mask. He is also advised to check his CPAP data daily to track his mask leaks so he can adjust mask for next night of use if needed. I again reviewed that if unable to get his AHI to optimal goal, a titration study is recommended. He is advised to continue to lose weight and exercise for overall health benefit and reduction of AHI. Patient's apnea severity and rationale for treatment to reduce apnea, improve sleep quality and reduce cardiovascular and cerebrovascular events was reviewed. I also reviewed the benefit of consistent device use of CPAP for hypertension, diabetes, . * Continue auto CPAP pressure at 12-14 cmH2O * mask refitting * Notify me if snoring with mask or feeling that the pressure is too much or too little * Attempt to lose weight * Call this office if any problems using CPAP * Return for follow up in 2 months , or sooner if concerns arise Visit Type: Telehealth Phone Patient agrees and consents to this telehealth visit type: Yes Patient agrees to have their insurance billed: Yes Time Spent with Patient (minutes): 13 Provider Statement: I spent 100% of the Telehealth Phone Call with the patient with greater than 50% spent counseling the patient and coordination of care.
== END 2020-01-28 13:39 | disposition home or self-care (01) ==
LOC: SC 13:38
PROVIDERS: ATTEND Nurse Practitioner Family
DX: G47.33 Obstructive sleep apnea (adult) (pediatric) (principal); E66.9 Obesity, unspecified; Z68.34 Body mass index [BMI] 34.0-34.9, adult

== ENCOUNTER 2020-08-02 07:15 | Outpatient (CLI) | payer MEDICARE, OTHER ==
[2020-08-02 08:03] LABS: % IRON SATURATION 11 % (20-50); BUN - BLOOD UREA NITROGEN 24 mg/dL (6-20); CALCIUM 8.8 mg/dL (8.5-10.3); CARBON DIOXIDE - CO2 25 mmol/L (21-32); CHLORIDE 104 mmol/L (101-111); CHOL/HDL RATIO 5.3 (<5.0); CHOLESTEROL 169 mg/dL; CREATININE 0.8 mg/dL (0.6-1.2); GFR - MDRD 93 (>89); GLUCOSE 150 mg/dL (70-100); HDL CHOLESTEROL 32 mg/dL; IRON 44 ug/dL (45-182); LDL CHOLESTEROL,CALCULATED 104 mg/dL; LDL/HDL RATIO 3.3 (<3.6); POTASSIUM 4.2 mmol/L (3.5-5.0); SODIUM 137 mmol/L (135-145); TOTAL IRON BINDING CAPACITY 391 ug/dL (250-450); TRANSFERRIN 279 mg/dL (180-329); TRIGLYCERIDES 166 mg/dL; VLDL CHOLESTEROL 33 mg/dL
[2020-08-02 08:08] LABS: CREATININE,URINE 103.7 mg/dL; MICROALBUM/CREATININE RATIO,UR 16.4 ug/mg (<30.0); MICROALBUMIN,URINE 1.7 mg/dL (0-300.0)
[2020-08-02 08:14] LABS: THYROID STIMULATING HORMONE 6.36 uIU/mL (0.34-5.60)
[2020-08-02 08:20] LABS: FERRITIN 13.7 ng/mL (23.9-336.2)
[2020-08-02 09:02] LABS: PSA FREE 0.35 ng/mL (0.16-2.81)
[2020-08-02 09:03] LABS: PSA TOTAL 1.38 ng/mL (0.000-2.000)
[2020-08-02 09:39] LABS: FREE T4 (FREE THYROXINE) 0.74 ng/dL (0.58-1.64)
[2020-08-02 12:18] LABS: ESTIMATED AVERAGE GLUCOSE 157 mg/dL (70-100); HEMOGLOBIN A1c% 7.1 % (4.27-6.07)
== END 2020-08-02 07:16 | disposition home or self-care (01) ==
LOC: LAB 07:15
PROVIDERS: ATTEND Nurse Practitioner
DX: E11.8 Type 2 diabetes mellitus with unspecified complications (principal); E66.01 Morbid (severe) obesity due to excess calories; E03.9 Hypothyroidism, unspecified; D64.9 Anemia, unspecified; N40.0 Benign prostatic hyperplasia without lower urinary tract symptoms
CPT/HCPCS: 36415; 80048; 80061; 82043; 82570; 82728; 83036; 83540; 83721; 84153; 84154; 84439; 84443; 84466

== ENCOUNTER 2020-08-30 11:43 | Outpatient (CLI) | payer MEDICARE, OTHER ==
--- NOTE | 2020-08-30 15:17 | Ultrasound Report ---
PROCEDURE: Duplex Ext Veins Right INDICATIONS: R LEG PAIN, VENOUS INSUFFICIENCY, DM TYPE 2 TECHNIQUE: Real-time imaging, as well as color and pulse Doppler interrogation, were performed of the lower extr emity deep veins from the inguinal ligament to the popliteal fossa. COMPARISON: None. FINDINGS: The deep veins are normally compressible, and free of intraluminal thrombus. Color and pu lse Doppler demonstrate normal phasic intraluminal flow. There is normal augmentation response to di stal compression maneuver. Reflux is noted in the right superficial femoral vein distal segment and right popliteal vein. IMPRESSION: No DVT in the right lower extremity. Reviewed by: Luis Miguel Youssef on 08/30/2020 3:15 PM PDT Approved by: Luis Miguel Youssef on 08/30/2020 3:15 PM PDT Station ID: [id number]
--- NOTE | 2020-08-30 16:23 | Ultrasound Report ---
PROCEDURE: Ankle Brachial Index INDICATIONS: R LEG PAIN, VENOUS INSUFFICIENCY, DM TYPE 2 TECHNIQUE: Ankle-brachial indices were obtained bilaterally and recorded. COMPARISONS: None. FINDINGS: Right ankle brachial index (RAMSES): 1.23 Left ankle brachial index (RAMSES): 1.1 IMPRESSION: Ankle-brachial brachial indices are within normal limits. Reviewed by: Jazmín Epperson MD on 08/30/2020 4:22 PM PDT Approved by: Jazmín Epperson MD on 08/30/2020 4:22 PM PDT Station ID: [id number]
== END 2020-08-30 11:44 | disposition home or self-care (01) ==
LOC: DI 11:43
PROVIDERS: ATTEND Nurse Practitioner
DX: M79.604 Pain in right leg (principal); I87.2 Venous insufficiency (chronic) (peripheral); E11.65 Type 2 diabetes mellitus with hyperglycemia
CPT/HCPCS: 93922

== ENCOUNTER 2020-10-04 06:24 | Day surgery (SDC) | payer MEDICARE, OTHER ==
[2020-10-04] MEDS ORDERED: LACTATED RINGERS 1,000 ML IV ONE (06:29)
--- NOTE | 2020-10-04 07:52 | ANESTHESIA ---
Pre-Anesthesia VS, & Labs - Diagnosis history of colon polyps, screening exam - Procedure colonoscopy Vital Signs: Temp Pulse Resp BP Pulse Ox 36 C L 50 L 14 144/73 H 98 10/04/20 06:30 10/04/20 06:30 10/04/20 06:30 10/04/20 06:30 10/04/20 06:30 Height: 6 ft 3 in Weight (kg): 129.8 kg Body Mass Index: 35.7 BMI Classification: Obese - NPO >8 hours - Lab Results Current Lab Results: Laboratory Tests 10/04/20 06:55: POC Whole Bld Glucose 101 H Home Medications and Allergies Home Medications: Ambulatory Orders Finasteride [Proscar] 5 mg PO DAILY 10/04/20 Gabapentin [Gralise] 300 mg PO BID 10/04/20 Multivitamin 1 tab PO DAILY 10/04/20 metFORMIN [Glucophage] 1,000 mg PO BID 03/04/15 Berberine/ Cinnamon/ Chromium 1 tab PO TID 06/26/18 Cholecalciferol (Vitamin D3) [Vitamin D] 2,000 unit PO BID 06/26/18 Insulin Glargine [Lantus Solostar] 28 units SQ DAILY PM 06/26/18 Krill Oil/[place]-3/Dha/Epa [[place]-3 Krill Oil Softgel] 1 each PO DAILY 06/26/18 Magnesium 500 mg PO DAILY 06/26/18 Finasteride [Proscar] 5 mg PO DAILY 10/04/20 Gabapentin [Gralise] 300 mg PO BID 10/04/20 Multivitamin 1 tab PO DAILY 10/04/20 Allergies/Adverse Reactions: Allergies Allergy/AdvReac Type Severity Reaction Status Date / Time hydrocodone AdvReac Mild Unknown Verified 06/26/18 11:31 Anes History & Medical History - Anesthetic History Anesthesia Complications: reports: No previous complications - Medical History Cardiovascular: reports: None Pulmonary: reports: Sleep apnea, CPAP use Gastrointestinal: reports: Colon polyps Urinary: reports: Benign prostate hypertrophy, Renal insuffiency Neuro: reports: None Musculoskeletal: reports: None Endocrine/Autoimmune: reports: Type 2 diabetes Blood Disorders: reports: Anemia Skin: reports: None Smoking Status: Never smoker Psychosocial: reports: Alcohol (daily glass of wine) History of Cancer?: Yes (kidney cancer, removed with surgery) - Surgical History General: reports: Colonoscopy Other Past Surgical History: Left partial nephrectomy Exam General: Alert, Oriented x3, Cooperative, No acute distress Dental: Other (overbite) Mouth Openin Fingerbreadth Neck Mobility: Normal Mallampati classification: III Thyromental Distance: 4-6 cm Mental/Cognitive Status: Alert/Oriented X3, Normal for patient Plan Anesthesia Type: Total IV Consent for Procedure(s) Verified and Reviewed: Yes Code Status: Attempt Resuscitation ASA classification: 2-Mild systemic disease Is this case an emergency?: No
[2020-10-04] MEDS ORDERED: ONDANSETRON 4 MG/2 ML VIAL IVP PRN (09:04)
[2020-10-04] MEDS ORDERED: NALOXONE 0.4 MG/ML VIAL IVP PRN (09:04)
[2020-10-04] MEDS ORDERED: ATROPINE ABBOJECT 1 MG/10 ML SYRINGE IVP PRN (09:04)
[2020-10-04] MEDS ORDERED: LACTATED RINGERS 300 ML IV ONE (09:11)
[2020-10-04 09:31] VITALS: BP 150/85
[2020-10-04] MEDS ORDERED: LACTATED RINGERS 1,000 ML IV SCH (10:00)
--- NOTE | 2020-10-04 11:20 | ANESTHESIA POST OP EVALUATION ---
Anesthesia Post Eval - Post Anesthesia Eval Vitals: Last Vital Signs Temp 36.0 C L 10/04/20 09:30 Pulse 49 L 10/04/20 09:30 Resp 16 10/04/20 09:30 BP 150/85 H 10/04/20 09:30 Pulse Ox 99 10/04/20 09:30 CV Function Including HR & BP: Stable Pain Control: Satisfactory Nausea & Vomiting: Negative Mental Status: Baseline Respiratory Status: Airway Patent Hydration Status: Satisfactory Anesthesia Complications: None
== END 2020-10-04 06:25 | disposition home or self-care (01) ==
LOC: SDS 06:24
PROVIDERS: ATTEND Surgery
PROC: 0DBL8ZZ Excision of Transverse Colon, Via Natural or Artificial Opening Endoscopic (ICD-10-PCS; 2020-10-04)
PROC: 0DBN8ZZ Excision of Sigmoid Colon, Via Natural or Artificial Opening Endoscopic (ICD-10-PCS; 2020-10-04)
PROC: 0DBM8ZZ Excision of Descending Colon, Via Natural or Artificial Opening Endoscopic (ICD-10-PCS; principal; 2020-10-04 07:30)
DX: Z12.11 Encounter for screening for malignant neoplasm of colon (principal); D12.4 Benign neoplasm of descending colon; D12.3 Benign neoplasm of transverse colon; K63.5 Polyp of colon; K64.5 Perianal venous thrombosis; G47.33 Obstructive sleep apnea (adult) (pediatric); E66.9 Obesity, unspecified; Z68.35 Body mass index [BMI] 35.0-35.9, adult; Z80.0 Family history of malignant neoplasm of digestive organs
CPT/HCPCS: 45385; J7120

== ENCOUNTER 2020-11-02 07:10 | Outpatient (CLI) | payer MEDICARE, OTHER ==
[2020-11-02 07:40] LABS: BASOPHILS # (AUTO) 0.1 10^3/uL (0.0-0.1); BASOPHILS % (AUTO) 0.9 %; EOSINOPHILS # (AUTO) 0.3 10^3/uL (0.0-0.7); EOSINOPHILS % (AUTO) 4.4 %; HCT - HEMATOCRIT 45.4 % (42.0-52.0); HGB - HEMOGLOBIN 15.1 g/dL (14.0-18.0); LYMPHOCYTES # (AUTO) 1.3 10^3/uL (1.5-3.5); LYMPHOCYTES % (AUTO) 20.7 %; MEAN CORPUSCULAR HEMOGLOBIN 28.8 pg (27.0-31.0); MEAN CORPUSCULAR HGB CONC 33.3 g/dL (32.0-36.0); MEAN CORPUSCULAR VOLUME 86.6 fL (80.0-94.0); MEAN PLATELET VOLUME 10.5 fL (7.4-11.4); MONOCYTES # (AUTO) 0.4 10^3/uL (0.0-1.0); MONOCYTES % (AUTO) 6.9 %; NEUTROPHILS # (AUTO) 4.2 10^3/uL (1.5-6.6); NEUTROPHILS % (AUTO) 66.3 %; PLT - PLATELET COUNT 227 10^3/uL (130-450); RED BLOOD COUNT 5.24 10^6/uL (4.70-6.10); RED CELL DISTRIBUTION WIDTH 14.5 % (12.0-15.0); WHITE BLOOD COUNT 6.4 x10^3/uL (4.8-10.8)
[2020-11-02 07:50] LABS: POTASSIUM 4.3 mmol/L (3.5-5.0)
[2020-11-02 13:01] LABS: ESTIMATED AVERAGE GLUCOSE 192 mg/dL (70-100); HEMOGLOBIN A1c% 8.3 % (4.27-6.07)
== END 2020-11-02 07:11 | disposition home or self-care (01) ==
LOC: LAB 07:10
PROVIDERS: ATTEND Family Medicine
DX: N40.0 Benign prostatic hyperplasia without lower urinary tract symptoms (principal); D64.9 Anemia, unspecified
CPT/HCPCS: 36415; 80048; 83036; 83540; 84466; 85025

== ENCOUNTER 2021-02-09 07:48 | Outpatient (CLI) | payer MEDICARE, OTHER ==
[2021-02-09 08:14] LABS: CALCIUM 9.1 mg/dL (8.5-10.3); CREATININE 0.9 mg/dL (0.6-1.2); POTASSIUM 4.4 mmol/L (3.5-5.0)
[2021-02-09 08:57] LABS: ESTIMATED AVERAGE GLUCOSE 194 mg/dL (70-100); HEMOGLOBIN A1c% 8.4 % (4.27-6.07)
== END 2021-02-09 07:49 | disposition home or self-care (01) ==
LOC: LAB 07:48
PROVIDERS: ATTEND Family Medicine
DX: E11.8 Type 2 diabetes mellitus with unspecified complications (principal); G47.30 Sleep apnea, unspecified
CPT/HCPCS: 36415; 80048; 83036

== ENCOUNTER 2021-05-12 09:40 | Outpatient (CLI) | payer MEDICARE, OTHER ==
[2021-05-12 10:03] LABS: CREATININE 0.9 mg/dL (0.6-1.2); POTASSIUM 4.6 mmol/L (3.5-5.0)
[2021-05-12 12:53] LABS: ESTIMATED AVERAGE GLUCOSE 166 mg/dL (70-100); HEMOGLOBIN A1c% 7.4 % (4.27-6.07)
== END 2021-05-12 09:41 | disposition home or self-care (01) ==
LOC: LAB 09:40
PROVIDERS: ATTEND Family Medicine
DX: E11.42 Type 2 diabetes mellitus with diabetic polyneuropathy (principal)
CPT/HCPCS: 36415; 80048; 83036

== ENCOUNTER 2021-06-09 10:50 | Outpatient (CLI) | payer MEDICARE, OTHER ==
[2021-06-09 11:37] VITALS: BP 151/77
--- NOTE | 2021-06-09 11:37 | SLEEP CARE CONSULTATION ---
Information from patient questionnaire entered by Manuel Barnes MA. I have reviewed and concur with the information entered by Manuel Barnes MA. This document represents the service I personally performed and the decisions made by , Sandy Ponce ARNP. History of Present Illness Service Date and Time: 06/09/2021 1050 Previous diagnosis: Moderate, Obstructive Sleep Apnea-Hypopnea Syndrome AHI: 26.4 (in 2008) Reason for follow up: annual (LAST SEEN 01/2020) Equipment type: CPAP Equipment obtained from: Other ([facility]; getting supplies as needed) Mask style: Nasal pillows Backup mask available: Yes (old mask) Last cushion change: 2-3 weeks ago Prior sleep studies: Yes Year and Where: [address] [facility] Sleep HPI additional information: ROCHELLE VERDUGO was diagnosed to have moderate, AHI 26.4, obstructive sleep apnea- hypopnea syndrome and returned todaywith partner for CPAP therapy annual follow- up. Sleep Study - Results Prior sleep studies: Yes Year and Where: [address] [facility] Sleep CPAP Compliance Data - Data Reviewed with Patient Average duration of nightly device use: 6 HOURS 49 MINUTES Compliance rate %: 98.9 Current pressure setting (cmH2O): 12-14 Humidity settin Heated hose settin Average residual AHI: 12.9 Average large leak: 33 MINUTES 50 SECONDS Subjective Patient concerns: reports: mask leak noise (just needs adjustment from mask movement). denies: aerophagia, mask discomfort, air blowing in eyes, condensation in mask/hose, nasal congestion, dry mouth, nose, throat, epistaxis, other Observed to snore while using device: No Current pressure setting perceived as: comfortable On therapy, patient: reports: sleeping better, awakening more refreshed, being more awake and alert during the day, more rested overall. denies: drowsiness while driving Initial [place] Sleepiness Scale score: 12 (in 2008) Current [place] Sleepiness Scale score: 7 (2021) Allergies and Home Medications Known drug allergies: No Drug allergies reviewed: Yes Home medication list reviewed: Yes (Gabapentin, Lantus) Review of Systems Review of systems same as previous: No (cataract surgery being scheduled) Physical Exam Vital signs obtained and entered by: Zofia BARNES CMA [place] Blood Pressure: 151/77 (RIGHT, PULSE 58) Cuff size: wrist Heart Rate: 53 O2 Saturation: 94 (WITH PAPER MASK) Height: 6 ft 3 in Weight: 289 lb (WITH CLOTHES) Weight change since last visit: 11 lb gain Body Mass Index: 36.1 BMI Classification: Obese Impression and Plan 1. Obstructive Sleep Apnea-Hypopnea Syndrome, moderate, with good treatment compliance and fair apnea control with elevated residual AHI. On CPAP therapy, the patient has better sleep quality and is more rested overall. Patient is very satisfied with current pressure settings. He states they have tried over the years to adjust his pressure for better control but he had large mask leaks contributing to elevated AHI. He would like to keep current settings and has good benefit from his CPAP therapy. No changes to pressure needed today. Patient has already registered their device for the recall. Patient denies any black particles seen in machine or hoses, any unusual odors coming from device. Patient has not experienced any physical symptoms such as upper airway irritation, headache, skin or eye irritation, asthma, nausea/vomiting, difficulty breathing or chest pain. If patient is not able to sleep due to waking up choking, gasping for air or other respiratory distress that they may decide to continue using it until it is either replaced or repaired. Patient is continuing to use his device and monitoring for debris in his machine. Patient voiced understanding and agreement with plan. Patient's apnea severity and rationale for treatment to reduce apnea, improve sleep quality and reduce cardiovascular and cerebrovascular events was reviewed. I also reviewed the benefit of consistent device use of CPAP for hypertension and diabetes. Patient has gained weight. Currently patients BMI is 36.1. Obesity increases the risk of apnea, CPAP pressure requirements and overall health risks especially cardiovascular and diabetes. He does try to eat healthy but know he needs to increase his activity/exercise during the week to lose weight. Patient was encouraged to continue to try to lose weight for their overall health and to reduce apneas. * Continue auto CPAP pressure at 12-14 cmH2O * Notify me if snoring with mask or feeling that the pressure is too much or too little * Attempt to lose weight * Call this office if any problems using CPAP * Return for follow up in 1 year, or sooner if concerns arise Counseling Topics: Spare mask, Weight loss health impact Visit Type: In Office Time Spent with Patient (minutes): 24 Provider Statement: I spent 100% of the Face to Face Visit with the patient with greater than 50% spent counseling the patient and coordination of care.
== END 2021-06-09 10:51 | disposition home or self-care (01) ==
LOC: SC 10:50
PROVIDERS: ATTEND Nurse Practitioner Family
DX: G47.33 Obstructive sleep apnea (adult) (pediatric) (principal); E66.9 Obesity, unspecified; Z68.36 Body mass index [BMI] 36.0-36.9, adult
CPT/HCPCS: 99213; G0463; 99212

== ENCOUNTER 2021-08-09 07:36 | Outpatient (CLI) | payer MEDICARE, OTHER ==
[2021-08-09 08:14] LABS: BASOPHILS # (AUTO) 0.1 10^3/uL (0.0-0.1); BASOPHILS % (AUTO) 1.1 %; EOSINOPHILS # (AUTO) 0.3 10^3/uL (0.0-0.7); EOSINOPHILS % (AUTO) 5.7 %; HCT - HEMATOCRIT 44.5 % (42.0-52.0); HGB - HEMOGLOBIN 14.4 g/dL (14.0-18.0); LYMPHOCYTES # (AUTO) 1.1 10^3/uL (1.5-3.5); LYMPHOCYTES % (AUTO) 19.3 %; MEAN CORPUSCULAR HEMOGLOBIN 28.4 pg (27.0-31.0); MEAN CORPUSCULAR HGB CONC 32.4 g/dL (32.0-36.0); MEAN CORPUSCULAR VOLUME 87.8 fL (80.0-94.0); MEAN PLATELET VOLUME 10.2 fL (7.4-11.4); MONOCYTES # (AUTO) 0.4 10^3/uL (0.0-1.0); NEUTROPHILS # (AUTO) 3.6 10^3/uL (1.5-6.6); NEUTROPHILS % (AUTO) 65.5 %; PLT - PLATELET COUNT 174 10^3/uL (130-450); RED BLOOD COUNT 5.07 10^6/uL (4.70-6.10); RED CELL DISTRIBUTION WIDTH 14.6 % (12.0-15.0); WHITE BLOOD COUNT 5.5 x10^3/uL (4.8-10.8)
[2021-08-09 08:24] LABS: CREATININE,URINE 105.5 mg/dL; MICROALBUM/CREATININE RATIO,UR 82.5 ug/mg (<30.0); MICROALBUMIN,URINE 8.7 mg/dL (0-300.0)
[2021-08-09 08:38] LABS: ALBUMIN 3.8 g/dL (3.2-5.5); ALBUMIN/GLOBULIN RATIO 1.5 (1.0-2.2); ALKALINE PHOSPHATASE 70 IU/L (42-121); ALT ALANINE AMINOTRANSFERASE 16 IU/L (10-60); AST ASPARTATE AMINOTRANSFERASE 16 IU/L (10-42); BILIRUBIN,TOTAL 0.5 mg/dL (0.2-1.0); BUN - BLOOD UREA NITROGEN 22 mg/dL (6-20); CALCIUM 8.8 mg/dL (8.5-10.3); CARBON DIOXIDE - CO2 29 mmol/L (21-32); CHLORIDE 101 mmol/L (101-111); CHOL/HDL RATIO 4.5 (<5.0); CHOLESTEROL 139 mg/dL; CREATININE 0.9 mg/dL (0.6-1.2); GFR - MDRD 81 (>89); GLUCOSE 152 mg/dL (70-100); HDL CHOLESTEROL 31 mg/dL; LDL CHOLESTEROL,CALCULATED 89 mg/dL; LDL/HDL RATIO 2.9 (<3.6); POTASSIUM 4.2 mmol/L (3.5-5.0); SODIUM 138 mmol/L (135-145); TOTAL PROTEIN 6.4 g/dL (6.7-8.2); TRIGLYCERIDES 95 mg/dL; VLDL CHOLESTEROL 19 mg/dL
[2021-08-09 08:46] LABS: THYROID STIMULATING HORMONE 6.42 uIU/mL (0.34-5.60)
[2021-08-09 09:36] LABS: FREE T4 (FREE THYROXINE) 0.78 ng/dL (0.58-1.64)
[2021-08-09 12:27] LABS: ESTIMATED AVERAGE GLUCOSE 171 mg/dL (70-100); HEMOGLOBIN A1c% 7.6 % (4.27-6.07)
== END 2021-08-09 07:37 | disposition home or self-care (01) ==
LOC: LAB 07:36
PROVIDERS: ATTEND Family Medicine
DX: E11.42 Type 2 diabetes mellitus with diabetic polyneuropathy (principal); B35.1 Tinea unguium; I10 Essential (primary) hypertension; E03.9 Hypothyroidism, unspecified; N40.0 Benign prostatic hyperplasia without lower urinary tract symptoms; E66.01 Morbid (severe) obesity due to excess calories
CPT/HCPCS: 36415; 80053; 80061; 82043; 82570; 83036; 83721; 84439; 84443; 85025

== ENCOUNTER 2021-08-22 12:31 | Outpatient (CLI) | payer MEDICARE, OTHER ==
--- NOTE | 2021-08-22 13:13 | XRAY Report ---
PROCEDURE: Ankle 3 View RT INDICATIONS: RT ANKLE PX TECHNIQUE: 3 views of the ankle were acquired. COMPARISON: March 23, 2014. FINDINGS: BONES: No acute, displaced fracture or dislocation. The ankle mortise is maintained on these nonstre ssed views. SOFT TISSUES: No focal abnormality. IMPRESSION: 1.No acute osseous abnormality. Reviewed by: Mark Ordonez MD on 08/22/2021 1:11 PM PDT Approved by: Mark Ordonez MD on 08/22/2021 1:11 PM PDT Station ID: [id number]
== END 2021-08-22 12:32 | disposition home or self-care (01) ==
LOC: DI 12:31
PROVIDERS: ATTEND Family Medicine
DX: M25.571 Pain in right ankle and joints of right foot (principal)

== ENCOUNTER 2022-03-08 07:43 | Outpatient (CLI) | payer MEDICARE, OTHER ==
[2022-03-08 07:59] LABS: BASOPHILS # (AUTO) 0.1 10^3/uL (0.0-0.1); BASOPHILS % (AUTO) 1.1 %; EOSINOPHILS # (AUTO) 0.3 10^3/uL (0.0-0.7); EOSINOPHILS % (AUTO) 5.9 %; HCT - HEMATOCRIT 46.1 % (42.0-52.0); HGB - HEMOGLOBIN 14.5 g/dL (14.0-18.0); LYMPHOCYTES % (AUTO) 18.2 %; MEAN CORPUSCULAR HEMOGLOBIN 27.5 pg (27.0-31.0); MEAN CORPUSCULAR HGB CONC 31.5 g/dL (32.0-36.0); MEAN CORPUSCULAR VOLUME 87.3 fL (80.0-94.0); MEAN PLATELET VOLUME 10.2 fL (7.4-11.4); MONOCYTES # (AUTO) 0.5 10^3/uL (0.0-1.0); MONOCYTES % (AUTO) 8.8 %; NEUTROPHILS # (AUTO) 3.7 10^3/uL (1.5-6.6); NEUTROPHILS % (AUTO) 65.6 %; PLT - PLATELET COUNT 176 10^3/uL (130-450); RED BLOOD COUNT 5.28 10^6/uL (4.70-6.10); RED CELL DISTRIBUTION WIDTH 14.7 % (12.0-15.0); WHITE BLOOD COUNT 5.6 x10^3/uL (4.8-10.8)
[2022-03-08 08:12] LABS: CREATININE,URINE 116.2 mg/dL; MICROALBUM/CREATININE RATIO,UR 53.4 ug/mg (<30.0); MICROALBUMIN,URINE 6.2 mg/dL (0-300.0)
[2022-03-08 08:15] LABS: ALBUMIN 3.9 g/dL (3.2-5.5); ALBUMIN/GLOBULIN RATIO 1.4 (1.0-2.2); BILIRUBIN,TOTAL 0.7 mg/dL (0.2-1.0); CALCIUM 9.4 mg/dL (8.5-10.3); CREATININE 0.9 mg/dL (0.6-1.2); POTASSIUM 4.2 mmol/L (3.5-5.0); TOTAL PROTEIN 6.7 g/dL (6.7-8.2)
[2022-03-08 12:21] LABS: ESTIMATED AVERAGE GLUCOSE 154 mg/dL (70-100)
== END 2022-03-08 07:44 | disposition home or self-care (01) ==
LOC: LAB 07:43
PROVIDERS: ATTEND Family Medicine
DX: E11.42 Type 2 diabetes mellitus with diabetic polyneuropathy (principal); E11.8 Type 2 diabetes mellitus with unspecified complications
CPT/HCPCS: 36415; 80053; 82043; 82570; 83036; 85025

== ENCOUNTER 2022-07-14 10:42 | Outpatient (CLI) | payer MEDICARE, OTHER ==
[2022-07-14 11:00] LABS: BASOPHILS # (AUTO) 0.1 10^3/uL (0.0-0.1); BASOPHILS % (AUTO) 0.7 %; EOSINOPHILS # (AUTO) 0.3 10^3/uL (0.0-0.7); EOSINOPHILS % (AUTO) 3.5 %; HGB - HEMOGLOBIN 12.1 g/dL (14.0-18.0); LYMPHOCYTES # (AUTO) 0.9 10^3/uL (1.5-3.5); LYMPHOCYTES % (AUTO) 9.7 %; MEAN CORPUSCULAR HGB CONC 31.8 g/dL (32.0-36.0); MEAN PLATELET VOLUME 10.8 fL (7.4-11.4); MONOCYTES # (AUTO) 0.5 10^3/uL (0.0-1.0); MONOCYTES % (AUTO) 5.9 %; NEUTROPHILS # (AUTO) 7.2 10^3/uL (1.5-6.6); NEUTROPHILS % (AUTO) 79.6 %; PLT - PLATELET COUNT 198 10^3/uL (130-450); RED BLOOD COUNT 4.32 10^6/uL (4.70-6.10); RED CELL DISTRIBUTION WIDTH 15.2 % (12.0-15.0); WHITE BLOOD COUNT 9.1 x10^3/uL (4.8-10.8)
[2022-07-14 11:11] LABS: ESTIMATED AVERAGE GLUCOSE 180 mg/dL (70-100); HEMOGLOBIN A1c% 7.9 % (4.27-6.07)
[2022-07-14 11:18] LABS: ALBUMIN 3.4 g/dL (3.2-5.5); ALBUMIN/GLOBULIN RATIO 1.1 (1.0-2.2); ALKALINE PHOSPHATASE 79 IU/L (42-121); ALT ALANINE AMINOTRANSFERASE 15 IU/L (10-60); AST ASPARTATE AMINOTRANSFERASE 14 IU/L (10-42); BILIRUBIN,TOTAL 0.8 mg/dL (0.2-1.0); BUN - BLOOD UREA NITROGEN 19 mg/dL (6-20); CARBON DIOXIDE - CO2 30 mmol/L (21-32); CHLORIDE 97 mmol/L (101-111); CHOL/HDL RATIO 4.1 (<5.0); CHOLESTEROL 123 mg/dL; GFR - MDRD 72 (>89); GLUCOSE 376 mg/dL (70-100); HDL CHOLESTEROL 30 mg/dL; LDL CHOLESTEROL,CALCULATED 69 mg/dL; LDL/HDL RATIO 2.3 (<3.6); POTASSIUM 4.1 mmol/L (3.5-5.0); SODIUM 134 mmol/L (135-145); TOTAL PROTEIN 6.6 g/dL (6.7-8.2); TRIGLYCERIDES 118 mg/dL; VLDL CHOLESTEROL 24 mg/dL
[2022-07-14 11:31] LABS: THYROID STIMULATING HORMONE 1.95 uIU/mL (0.34-5.60)
[2022-07-14 11:48] LABS: CREATININE,URINE 98.5 mg/dL
[2022-07-14 11:49] LABS: MICROALBUMIN,URINE 198.2 mg/dL (0-300.0)
== END 2022-07-14 10:43 | disposition home or self-care (01) ==
LOC: LAB 10:42
PROVIDERS: ATTEND Family Medicine
DX: I10 Essential (primary) hypertension (principal); E03.9 Hypothyroidism, unspecified; E11.8 Type 2 diabetes mellitus with unspecified complications; E66.01 Morbid (severe) obesity due to excess calories; G47.33 Obstructive sleep apnea (adult) (pediatric); E11.49 Type 2 diabetes mellitus with other diabetic neurological complication
CPT/HCPCS: 36415; 80053; 80061; 82043; 82570; 83036; 83721; 84443; 85025

== ENCOUNTER 2022-07-15 21:05 | Emergency (ER) | payer MEDICARE, OTHER ==
--- NOTE | 2022-07-15 23:04 | ED Physician Documentation ---
PD HPI MALE - Stated complaint Stated Complaint: MALE - Chief complaint Chief Complaint: Abd Pain - History obtained from History obtained from: Patient - Additional information Additional information: He had a TURP 3 days ago. Was in the hospital overnight and had his Boateng removed. He has not really been able to urinate since he left the hospital except for drips and dribbles with a lot of blood. PD PAST MEDICAL HISTORY - Past Medical History Cardiovascular: None Respiratory: Sleep apnea, CPAP use Neuro: None Endocrine/Autoimmune: Type 2 diabetes GI: Colon polyps : Benign prostate hypertrophy, Renal insuffiency HEENT: None Psych: None Musculoskeletal: None Derm: None - Past Surgical History General: Colonoscopy - Present Medications Home Medications: Ambulatory Orders Medication Instructions Recorded Confirmed metFORMIN [Glucophage] 1,000 mg PO BID 03/04/15 06/08/22 Berberine/ Cinnamon/ Chromium 1 tab PO TID 06/26/18 06/08/22 Cholecalciferol (Vitamin D3) 2,000 unit PO BID 06/26/18 06/08/22 [Vitamin D] Insulin Glargine [Lantus Solostar] 28 units SQ DAILY PM 06/26/18 06/08/22 Krill Oil/[place]-3/Dha/Epa [[place]-3 1 each PO DAILY 06/26/18 06/08/22 Krill Oil Softgel] Magnesium 500 mg PO DAILY 06/26/18 06/08/22 Finasteride [Proscar] 5 mg PO DAILY 10/04/20 06/08/22 Gabapentin [Gralise] 300 mg PO BID 10/04/20 06/08/22 Multivitamin 1 tab PO DAILY 10/04/20 06/08/22 - Allergies Allergies/Adverse Reactions: Allergies Allergy/AdvReac Type Severity Reaction Status Date / Time hydrocodone AdvReac Mild Unknown Verified 07/15/22 21:20 - Social History Smoking Status: Never smoker PD ED PE NORMAL - Vitals Vital signs reviewed: Yes - General General: Alert and oriented X 3, No acute distress - Abdomen Abdomen: Normal bowel sounds, Soft, Non tender - Neuro Neuro: Alert and oriented X 3, Normal speech Results - Vitals Vitals: Vital Signs - 24 hr 07/15/22 07/15/22 07/16/22 21:20 22:39 00:15 Temperature 36.5 C 87 C H Heart Rate 76 87 Respiratory 16 Rate Blood Pressure 160/88 H O2 Saturation 98 07/16/22 01:20 Temperature 36.9 C Heart Rate 79 Respiratory 17 Rate Blood Pressure 181/67 H O2 Saturation 96 Oxygen O2 Source Room air PD Medical Decision Making - ED course ED course: I was not able to place either a std or coude cath. Care to Dr Cherry pending RN trial at [place]. Departure - Departure Disposition: 01 Home, Self Care Clinical Impression: Postoperative urinary retention Condition: Stable Instructions: ED Retention Urinary Male Comments: You are seen in the emergency department for urinary retention. A catheter was attempted to be placed by Our healthcare team without success. You had 500 mL of urine in the bladder by ultrasound which means some urine is able to be passed. Please follow-up with your urologist at [facility] in the morning. Return to the emergency department for new or worsening symptoms or other concerns. Discharge Date/Time: 07/16/22 01:22
--- NOTE | 2022-07-16 01:06 | ED Physician Documentation ---
ED Addendum - Addendum Addendum: 07/16/22 01:05 81-year-old man endorsed to me by Dr. Iyer awaiting Boateng attempt by nursing staff. They were unable to pass a Boateng with regular or coud catheter. Patient had 500 cc of urine in the bladder by scan. Plan is for him to follow- up with [facility] in the morning. He will return to the emergency department if he has other concerns. Return precautions given. Impression 1 urinary retention Condition stable Disposition Home
[2022-07-16 01:23] VITALS: BP 181/67
== END 2022-07-16 01:22 | disposition home or self-care (01) ==
LOC: ED 21:05
DX: R33.9 Retention of urine, unspecified (principal)
CPT/HCPCS: 99281; 99283

== ENCOUNTER 2022-08-19 23:06 | Emergency (ER) | payer MEDICARE, OTHER ==
--- NOTE | 2022-08-19 23:51 | ED Physician Documentation ---
PD HPI MALE - Stated complaint Stated Complaint: MALE - Chief complaint Chief Complaint: General - History obtained from History obtained from: Patient - Additional information Additional information: HPI from patient. c/o no urine output since approximately 3 PM with increasing suprapubic discomfort and urge to urinate. Patient had urologic procedure to remove bladder stones 07/12/22, barry catheter in place when he was discharged. The catheter was eventually removed but needed replacement due to urinary retention. Approximately 10 days ago, he noted the catheter was coming out/dislodging on its own, and he was instructed by his urologist to remove the catheter himself. He had to have yet another catheter placed a few days ago due to recurrence of urinary retention. He says he has always been difficult to catheterize and typically needs urology to place catheter using wire-guided technique. Review of Systems Constitutional: denies: Fever : reports: Unable to Void PD PAST MEDICAL HISTORY - Past Medical History Past Medical History: No Cardiovascular: None Respiratory: Sleep apnea, CPAP use Neuro: None Endocrine/Autoimmune: Type 2 diabetes GI: Colon polyps : Benign prostate hypertrophy, Renal insuffiency HEENT: None Psych: None Musculoskeletal: None Derm: None - Past Surgical History Past Surgical History: Yes General: Colonoscopy - Present Medications Home Medications: Ambulatory Orders Medication Instructions Recorded Confirmed metFORMIN [Glucophage] 1,000 mg PO BID 03/04/15 06/08/22 Berberine/ Cinnamon/ Chromium 1 tab PO TID 06/26/18 06/08/22 Cholecalciferol (Vitamin D3) 2,000 unit PO BID 06/26/18 06/08/22 [Vitamin D] Insulin Glargine [Lantus Solostar] 28 units SQ DAILY PM 06/26/18 06/08/22 Krill Oil/[place]-3/Dha/Epa [[place]-3 1 each PO DAILY 06/26/18 06/08/22 Krill Oil Softgel] Magnesium 500 mg PO DAILY 06/26/18 06/08/22 Finasteride [Proscar] 5 mg PO DAILY 10/04/20 06/08/22 Gabapentin [Gralise] 300 mg PO BID 10/04/20 06/08/22 Multivitamin 1 tab PO DAILY 10/04/20 06/08/22 - Allergies Allergies/Adverse Reactions: Allergies Allergy/AdvReac Type Severity Reaction Status Date / Time hydrocodone AdvReac Mild Unknown Verified 08/19/22 23:21 - Social History Does the pt smoke?: No Smoking Status: Never smoker Does the pt drink ETOH?: No - Immunizations Immunizations are current?: Yes - POLST Patient has POLST: No PD ED PE NORMAL - Vitals Vital signs reviewed: Yes - General General: Alert and oriented X 3, No acute distress, Well developed/nourished - Abdomen Abdomen: Soft, Non tender, Non distended - Back Back: No CVA TTP Results - Vitals Vitals: Oxygen O2 Source Room air PD Medical Decision Making - ED course Complexity details: considered differential, d/w patient ED course: I evaluated patient after ED RN had flushed the catheter successfully, resulting in UO into barry collection bag and resolution of symptoms. No emergent testing indicated at this time. I reviewed previous [facility] ED visit record and this reflects the information patient provides, which is that he is difficult to catheterize. Thus, the barry catheter is left in place (as opposed to changing out the catheter). He is given a sterile irrigation system and sterile water with instruction on how to irrigate his barry catheter if it again does not drain. He is instructed to contact his urologist Sunday when the office opens Departure - Departure Disposition: Home, Self Care Clinical Impression: Encounter for assessment of Barry catheter Condition: Good Instructions: ED Catheter Care Barry Comments: We were able to irrigate your Barry catheter successfully, Although a second irrigation was necessary prior to discharging you home. Typically, we would consider removing your catheter and replacing it with a new one; as you know, in the past it has been very difficult to insert a Barry catheter into your bladder and thus I think it is best to keep this catheter in place for now and provide you with an irrigation kit that you can use at home if the catheter seems to become clogged again. Contact your urology group when their office opens on Sunday to arrange for immediate follow-up appointment. You can always return to the emergency department if the catheter seems to be malfunctioning again and not responding to attempts to irrigate. Discharge Date/Time: 08/20/22 01:30
[2022-08-20 01:30] VITALS: BP 158/84
== END 2022-08-20 01:30 | disposition home or self-care (01) ==
LOC: ED 23:06
DX: R33.9 Retention of urine, unspecified (principal); Z46.6 Encounter for fitting and adjustment of urinary device
CPT/HCPCS: 51798; 99283

== ENCOUNTER 2022-08-25 18:44 | Emergency (ER) | payer MEDICARE, OTHER ==
--- NOTE | 2022-08-25 19:23 | ED Physician Documentation ---
History of Present Illness - Stated complaint Stated Complaint: MALE - Chief complaint Chief Complaint: General - Additonal information Additional information: 81-year-old male presents to the emergency department for evaluation of urinary retention. This patient does have a history of bladder stones and underwent urologic procedure in late June. Since then he has had to have his catheter replaced multiple times. He reports the only people of ever been able to replace it were urologist using a guidewire. He was seen in this emergency department on 19 August with urinary obstruction which was cleared following irrigation. The catheter had been functioning normally until today when he noticed decreased urinary output. He attempted to irrigate at home with 250 mL of saline but no urine flowed out. His urologist is Dr. Judge through [facility]. He denies any fevers. Review of Systems Constitutional: denies: Fever, Chills : reports: Unable to Void PD PAST MEDICAL HISTORY - Past Medical History Past Medical History: Yes Cardiovascular: None Respiratory: Sleep apnea, CPAP use Neuro: None Endocrine/Autoimmune: Type 2 diabetes GI: Colon polyps : Benign prostate hypertrophy, Renal insuffiency HEENT: None Psych: None Musculoskeletal: None Derm: None - Past Surgical History Past Surgical History: Yes General: Colonoscopy - Present Medications Home Medications: Ambulatory Orders Medication Instructions Recorded Confirmed metFORMIN [Glucophage] 1,000 mg PO BID 03/04/15 06/08/22 Berberine/ Cinnamon/ Chromium 1 tab PO TID 06/26/18 06/08/22 Cholecalciferol (Vitamin D3) 2,000 unit PO BID 06/26/18 06/08/22 [Vitamin D] Insulin Glargine [Lantus Solostar] 28 units SQ DAILY PM 06/26/18 06/08/22 Krill Oil/[place]-3/Dha/Epa [[place]-3 1 each PO DAILY 06/26/18 06/08/22 Krill Oil Softgel] Magnesium 500 mg PO DAILY 06/26/18 06/08/22 Finasteride [Proscar] 5 mg PO DAILY 10/04/20 06/08/22 Gabapentin [Gralise] 300 mg PO BID 10/04/20 06/08/22 Multivitamin 1 tab PO DAILY 10/04/20 06/08/22 - Allergies Allergies/Adverse Reactions: Allergies Allergy/AdvReac Type Severity Reaction Status Date / Time hydrocodone AdvReac Mild Nausea Verified 08/25/22 18:55 - Social History Does the pt smoke?: No Smoking Status: Never smoker Does the pt drink ETOH?: No - Immunizations Immunizations are current?: Yes - POLST Patient has POLST: No PD ED PE NORMAL - HEENT HEENT: PERRL - Cardiac Cardiac: RRR, No murmur - Respiratory Respiratory: No respiratory distress - Abdomen Abdomen: Normal bowel sounds, Soft. No: Non distended (Distended lower abdomen palpable bladder. Bladder scan reveals greater than 500 residual volume) - Male Male : Other (18 Iraqi coud appearing catheter in place with a 10 cc balloon. I am able to easily flush 120 mL of saline solution but it does not return drainage.) - Derm Derm: Normal color, Warm and dry - Extremities Extremities: No deformity - Neuro Neuro: Alert and oriented X 3, dairy associate 2-12 intact Eye Opening: Spontaneous Motor: Obeys Commands Verbal: Oriented GCS Score: 15 Results - Vitals Vitals: Vital Signs - 24 hr 08/25/22 18:52 Temperature 36.8 C Heart Rate 77 Respiratory 16 Rate Blood Pressure 166/76 H O2 Saturation 96 Oxygen O2 Source Room air PD Medical Decision Making - ED course Complexity details: d/w patient, d/w wallpaper consultant (Dr. Judge urology) ED course: 81-year-old male who has a history of bladder stones status post urological intervention in late June and chronic indwelling Boateng catheter presents to the emergency department with a nondraining Boateng catheter. He has had difficulty with his catheter is not draining often requiring flushing. He also has difficult to place Boateng catheters. This 1 was placed by the urologist with a guided J-wire and is a coud style. The patient self irrigated at home with 250 mL of saline and was unable to get his catheter to drain. We did similar here in the ER with nearly 400 mL and again the catheter would not drain. The patient would not allow us to remove the catheter and requested we contact his urologist Dr. Judge. After speaking on the phone with Dr. Judge he encouraged me to deflate the balloon on the catheter and advance it as far as I could to the hub. I did this as he requested and the catheter began to immediately drain. He drained approximately 1600 mL of cloudy foul-smelling urine. Following this per the urologist's instructions I added 20 mL of saline to the balloon. Dr. Judge did not feel the antibiotics were necessary as the patient was afebrile and without abdominal pain once the catheter had drained. We deferred doing urinalysis as its not likely to be helpful in determining the presence of urinary tract infection. We did obtain baseline renal function today in the emergency department with a set of electrolytes and per my interpretation no acute worrisome findings. At this time the patient Is stable for discharge home. He will continue to follow-up with his urologist. The usual emergent return precautions discussed Departure - Departure Disposition: Home, Self Care Clinical Impression: Obstructed Boateng catheter Qualifiers: Encounter type: initial encounter Qualified Code(s): T83.091A - Other mechanical complication of indwelling urethral catheter, initial encounter Condition: Stable Record reviewed to determine appropriate education?: Yes Comments: You came to the emergency department because your Boateng catheter was not draining. After discussion with your urologist we deflated the balloon and the catheter, advance the catheter as far as we could to the hub then reinflated the balloon with 20 mL of saline. Following the advancement of the catheter you did drain about 1600 mL of urine. If at any point you find that your catheter is obstructed again you can try gentle flushing at home. If this does not resolve the obstruction please return immediately to the ER please. As always discussed this ED visit with your urologist. Return sooner for fevers, abdominal pain nausea and vomiting
[2022-08-25 19:48] LABS: ALBUMIN 3.4 g/dL (3.2-5.5); ALBUMIN/GLOBULIN RATIO 1.1 (1.0-2.2); BILIRUBIN,TOTAL 0.4 mg/dL (0.2-1.0); CREATININE 0.9 mg/dL (0.6-1.2); POTASSIUM 4.5 mmol/L (3.5-5.0); TOTAL PROTEIN 6.5 g/dL (6.7-8.2)
[2022-08-25 20:13] VITALS: BP 155/71
== END 2022-08-25 20:13 | disposition home or self-care (01) ==
LOC: ED 18:44
DX: R33.9 Retention of urine, unspecified (principal); T83.091A Other mechanical complication of indwelling urethral catheter, initial encounter; E11.9 Type 2 diabetes mellitus without complications; Z79.84 Long term (current) use of oral hypoglycemic drugs
CPT/HCPCS: 36415; 80053; 83690; 99283; 99284

== ENCOUNTER 2022-10-23 07:54 | Outpatient (CLI) | payer MEDICARE, OTHER ==
[2022-10-23 08:23] LABS: POTASSIUM 4.4 mmol/L (3.5-5.0)
[2022-10-23 14:37] LABS: ESTIMATED AVERAGE GLUCOSE 163 mg/dL (70-100); HEMOGLOBIN A1c% 7.3 % (4.27-6.07)
== END 2022-10-23 07:55 | disposition home or self-care (01) ==
LOC: LAB 07:54
PROVIDERS: ATTEND Family Medicine
DX: E11.42 Type 2 diabetes mellitus with diabetic polyneuropathy (principal); E66.9 Obesity, unspecified
CPT/HCPCS: 36415; 80048; 83036

== ENCOUNTER 2022-11-04 14:52 | Emergency (ER) | payer MEDICARE, OTHER ==
[2022-11-04 15:26] LABS: BILIRUBIN,URINE NEGATIVE (NEGATIVE); GLUCOSE, URINE (UA) 100 mg/dL (NEGATIVE); KETONES,URINE (UA) NEGATIVE (NEGATIVE); LEUKOCYTE ESTERASE, URINE LARGE (NEGATIVE); NITRITE,URINE POSITIVE (NEGATIVE); OCCULT BLOOD,URINE LARGE (NEGATIVE); PROTEIN,URINE 100 mg/dL (NEGATIVE); UROBILINOGEN,URINE 0.2 (NORMAL) E.U./dL (NORMAL)
[2022-11-04 15:31] LABS: BASOPHILS % (AUTO) 0.3 %; EOSINOPHILS # (AUTO) 0.3 10^3/uL (0.0-0.7); EOSINOPHILS % (AUTO) 2.4 %; HGB - HEMOGLOBIN 14.3 g/dL (14.0-18.0); LYMPHOCYTES # (AUTO) 0.8 10^3/uL (1.5-3.5); LYMPHOCYTES % (AUTO) 7.4 %; MEAN CORPUSCULAR HEMOGLOBIN 25.3 pg (27.0-31.0); MEAN CORPUSCULAR HGB CONC 31.1 g/dL (32.0-36.0); MEAN CORPUSCULAR VOLUME 81.3 fL (80.0-94.0); MEAN PLATELET VOLUME 10.5 fL (7.4-11.4); MONOCYTES # (AUTO) 0.5 10^3/uL (0.0-1.0); MONOCYTES % (AUTO) 4.9 %; NEUTROPHILS # (AUTO) 8.9 10^3/uL (1.5-6.6); NEUTROPHILS % (AUTO) 84.7 %; PLT - PLATELET COUNT 244 10^3/uL (130-450); RED BLOOD COUNT 5.66 10^6/uL (4.70-6.10); RED CELL DISTRIBUTION WIDTH 17.2 % (12.0-15.0); WHITE BLOOD COUNT 10.6 x10^3/uL (4.8-10.8)
[2022-11-04 15:38] LABS: BACTERIA,URINE Many /HPF (None Seen); CLARITY,URINE CLOUDY (CLEAR); RBC,URINE 0-5 /HPF (0-5); SQUAMOUS EPITHELIAL CELL,UR RARE Squamous (<= Few); WBC,URINE >25 /HPF (0-3); YEAST,URINE PRESENT
[2022-11-04 15:45] LABS: ALBUMIN 4.1 g/dL (3.2-5.5); ALBUMIN/GLOBULIN RATIO 1.2 (1.0-2.2); BILIRUBIN,TOTAL 0.7 mg/dL (0.2-1.0); CALCIUM 9.5 mg/dL (8.5-10.3); CREATININE 0.8 mg/dL (0.6-1.2); POTASSIUM 4.5 mmol/L (3.5-5.0); TOTAL PROTEIN 7.6 g/dL (6.7-8.2)
--- NOTE | 2022-11-04 15:48 | ED Physician Documentation ---
PD HPI ABD PAIN - Stated complaint Stated Complaint: STOMACH PX - Chief complaint Chief Complaint: Abd Pain - History obtained from History obtained from: Patient, Family () - History of Present Illness Timing - onset: Today Timing - duration: Hours Timing - details: Abrupt onset, Now resolved, Waxing and waning Quality: Cramping, Sharp, Pain Location: RLQ Improved by: Other (nothing) Worsened by: Other (nothing) Associated symptoms: Vomiting, Constipation. No: Nausea Similar symptoms before: Has not had sx before Recently seen: Not recently seen - Additional information Additional information: 82-year-old Clement Schilling is had episodic cramping abdominal pain on the right side today. He did not have a normal bowel movement yesterday and only had a slight amount out at 3 AM this morning. He is worried that he might be constipated. En-route to the hospital the patient has vomiting and this was undigested food from the night prior (mushrooms on the pizza). He indicates that someone made him a loaf of sourdough bread and he ate a lot more of that than he normally would in one setting. This was the day prior. He has previously had catheter in place for bladder stone and this catheter has been removed and the patient reports normal urination. Review of Systems Constitutional: reports: Sweats. denies: Fever Eyes: denies: Decreased vision Ears: denies: Ear pain Nose: denies: Rhinorrhea / runny nose, Congestion Throat: denies: Sore throat Cardiac: denies: Chest pain / pressure, Palpitations Respiratory: denies: Dyspnea, Cough GI: reports: Abdominal Pain, Nausea, Vomiting, Constipation : denies: Dysuria, Frequency Skin: denies: Rash Musculoskeletal: denies: Neck pain, Back pain PD PAST MEDICAL HISTORY - Past Medical History Past Medical History: Yes Cardiovascular: None Respiratory: Sleep apnea, CPAP use Neuro: None Endocrine/Autoimmune: Type 2 diabetes GI: Colon polyps : Benign prostate hypertrophy, Renal insuffiency HEENT: None Psych: None Musculoskeletal: None Derm: None - Past Surgical History Past Surgical History: Yes General: Colonoscopy - Present Medications Home Medications: Ambulatory Orders Medication Instructions Recorded Confirmed metFORMIN [Glucophage] 1,000 mg PO BID 03/04/15 08/25/22 Berberine/ Cinnamon/ Chromium 1 tab PO TID 06/26/18 08/25/22 Cholecalciferol (Vitamin D3) 2,000 unit PO BID 06/26/18 08/25/22 [Vitamin D] Insulin Glargine [Lantus Solostar] 28 units SQ DAILY PM 06/26/18 08/25/22 Krill Oil/[place]-3/Dha/Epa [[place]ynn-3 1 each PO DAILY 06/26/18 08/25/22 Krill Oil Softgel] Magnesium 500 mg PO DAILY 06/26/18 08/25/22 Finasteride [Proscar] 5 mg PO DAILY 10/04/20 08/25/22 Gabapentin [Gralise] 300 mg PO BID 10/04/20 08/25/22 Multivitamin 1 tab PO DAILY 10/04/20 08/25/22 - Allergies Allergies/Adverse Reactions: Allergies Allergy/AdvReac Type Severity Reaction Status Date / Time hydrocodone AdvReac Mild Nausea Verified 11/04/22 15:06 - Social History Does the pt smoke?: No Smoking Status: Never smoker Does the pt drink ETOH?: No - Immunizations Immunizations are current?: Yes - POLST Patient has POLST: No PD ED PE NORMAL - Vitals Vital signs reviewed: Yes (hypertensive ) - General General: Alert and oriented X 3, No acute distress, Well developed/nourished - HEENT HEENT: Atraumatic, PERRL, EOMI - Neck Neck: Supple, no meningeal sign, No bony TTP - Cardiac Cardiac: RRR, No murmur - Respiratory Respiratory: No respiratory distress, Clear bilaterally - Abdomen Abdomen: Soft, Other (distended with mild generalized tenderness) - Back Back: No CVA TTP, No spinal TTP - Derm Derm: Normal color, Warm and dry, No rash - Extremities Extremities: No deformity, No edema - Neuro Neuro: Alert and oriented X 3, self defense instructor 2-12 intact, No motor deficit, No sensory deficit, Normal speech Eye Opening: Spontaneous Motor: Obeys Commands Verbal: Oriented GCS Score: 15 - Psych Psych: Normal mood, Normal affect Results - Vitals Vitals: Vital Signs - 24 hr 11/04/22 14:57 Temperature 36.1 C L Heart Rate 65 Respiratory 17 Rate Blood Pressure 155/72 H O2 Saturation 95 Oxygen O2 Source Room air - Labs Labs: Laboratory Tests 11/04/22 11/04/22 11/04/22 15:14 15:25 15:25 WBC 10.6 RBC 5.66 Hgb 14.3 Hct 46.0 MCV 81.3 MCH 25.3 L MCHC 31.1 L RDW 17.2 H Plt Count 244 MPV 10.5 Neut # (Auto) 8.9 H Lymph # (Auto) 0.8 L [place] # (Auto) 0.5 Eos # (Auto) 0.3 Baso # (Auto) 0.0 Absolute Nucleated RBC 0.00 Nucleated RBC % 0.0 Sodium 139 Potassium 4.5 Chloride 103 Carbon Dioxide 27 Anion Gap 9.0 BUN 23 H Creatinine 0.8 Estimated GFR (MDRD) 93 Glucose 284 H Calcium 9.5 Total Bilirubin 0.7 AST 16 ALT 18 Alkaline Phosphatase 103 Total Protein 7.6 Albumin 4.1 Globulin 3.5 Albumin/Globulin Ratio 1.2 Lipase 25 Urine Color YELLOW Urine Clarity CLOUDY Urine pH 6.0 Ur Specific [place] >=1.030 H Urine Protein 100 H Urine Glucose (UA) 100 H Urine Ketones NEGATIVE Urine Occult Blood LARGE H Urine Nitrite POSITIVE H Urine Bilirubin NEGATIVE Urine Urobilinogen 0.2 (NORMAL) Ur Leukocyte Esterase LARGE H Urine RBC 0-5 Urine WBC >25 H Ur Squamous Epith Cells RARE Squamous Urine Bacteria Many H Urine Yeast PRESENT Ur Microscopic Review INDICATED Urine Culture Comments INDICATED - Rads (name of study) CT ab/pel w Relevant Findings:: Prelim report reviewed (Impression: Small bowel obstruction. Transition in the anterior abdomen at the umbilicus level nonobstructive right renal calculi. No bladder calculi hypertrophic prostate trace cholelithiasis without cholecystitis.), EMP independent interpretation of test PD Medical Decision Making - ED course Complexity details: reviewed results, re-evaluated patient, considered differential, d/w patient, d/w family, d/w job service consultant (Homero surgeon here will admit for bowel rest, fluids and pain control. ) Reviewed Lab Results: We reviewed a complete blood count which showed a normal white blood cell count normal hemoglobin hematocrit and platelets chemistries were remarkable for only the BUN elevated at 23 and the glucose elevated at 284. Electrolytes were normal creatinine 0.8 liver functions all normal lipase normal urinalysis shows a concentrated urine with protein and glucose occult blood nitrite and large evangelista kocyte Estrace with greater than 25 white blood cells per high-powered field and many bacteria the specimen did make the grade for culture. My interpretation of these results are that the patient does have urinary tract infection of unknown significance. He does have abdominal pain but he does have an a reason for this abdominal pain with a bowel obstruction.I found on the CT scan that the patient's bladder wall looked thickened consistent with infection and we have started ceftriaxone. ED course: 82-year-old Clement Schilling presents to the emergency department with increasing abdominal pain decreased stool output and vomiting. His CT scan is concerning for bowel obstruction. He does have a history of urinary tract infection he has a history of prior Boateng catheter use and bladder stones today there are no bladder stones present but there does appear to be evidence of infection. I have called our surgeon for consideration of admission for bowel rest, fluids and pain control. Departure - Departure Disposition: 66 [facility] DC/[facility] Clinical Impression: Small bowel obstruction Urinary tract infection Qualifiers: Urinary tract infection type: acute cystitis Hematuria presence: without hematu katia Qualified Code(s): N30.00 - Acute cystitis without hematuria Condition: Stable
[2022-11-04] MEDS ORDERED: iohexoL-300 100 ML VIAL ONE (16:10)
[2022-11-04] MEDS ORDERED: iohexoL-300 100 ML VIAL IVP ONE (16:25)
[2022-11-04] MEDS ORDERED: cefTRIAXone 1 GM in SODIUM CHLORIDE 0.9% MINIBAG 100 ML IV STA ×2 (16:46→18:17)
--- NOTE | 2022-11-04 16:58 | CT Report ---
PROCEDURE: CT abdomen pelvis with contrast INDICATIONS: RLQ pain CONTRAST: 100ml omni 300 TECHNIQUE: After the administration of contrast, 5 mm thick sections acquired from the diaphragms to the symphys is. 5 mm thick coronal and sagittal reformats were acquired. For radiation dose reduction, the foll owing was used: automated exposure control, adjustment of mA and/or kV according to patient size. COMPARISON: 01/05/2016 FINDINGS: Image quality: Excellent. Lung bases and heart: Unremarkable. Liver: No solid mass. Gallbladder and biliary tree: Cholelithiasis without pericholecystic inflammatory change Spleen: No splenomegaly. Pancreas: No pancreatic ductal dilation. Adrenals: No adrenal nodule. Kidneys and ureters: Bilateral renal cysts are stable from the prior exam. There are now multiple nod ules can calculi in the right renal urinary pelvis. Largest calculus measures up to 1.7 cm. Multiple calculi present in the bladder, improved in volume from the prior. Bowel and peritoneum: Dilated proximal small bowel measures up to 3.3 cm, distal small bowel decompre ssed, and there is a transition in the anterior mid abdomen level of the umbilicus Lymph nodes: No central or retroperitoneal adenopathy. Vessels: No infrarenal aortic aneurysm. PELVIS Reproductive organs: Hypertrophic prostate, slightly smaller than the prior exam Bladder: No abnormal wall thickening, accounting for underdistension. Pelvic lymph nodes: No pelvic adenopathy by size criteria. Bones: No aggressive osseous abnormality. Other: No significant ventral or inguinal hernia. IMPRESSION: Small bowel obstruction. Transition in the anterior abdomen at the umbilicus level Nonobstructive right renal calculi. No bladder calculi hypertrophic prostate Trace cholelithiasis without cholecystitis Reviewed by: Nikolas Baeza MD on 11/04/2022 3:57 PM AKAURORA Approved by: Nikolas Baeza MD on 11/04/2022 3:57 PM AKDT Station ID: [id number]
[2022-11-04] MEDS ORDERED: KETOROLAC 30 MG/ML VIAL IVP STA (17:12)
[2022-11-04] MEDS ORDERED: PROMETHAZINE 25 MG/1 ML VIAL IM PRN (18:05)
[2022-11-04] MEDS ORDERED: ACETAMINOPHEN 325 MG TABLET PO PRN (18:05)
[2022-11-04] MEDS ORDERED: ONDANSETRON 4 MG/2 ML VIAL IVP PRN (18:05)
[2022-11-04] MEDS ORDERED: SODIUM CHLORIDE FLUSH 0.9% 10 ML SYRINGE IVP PRN (18:05)
[2022-11-04] MEDS ORDERED: MORPHINE 2 MG/ML CARPUJECT IVP PRN (18:05)
--- NOTE | 2022-11-04 18:13 | HISTORY & PHYSICAL EXAMINATION ---
Chief Complaint - Chief Complaint Chief Complaint: abdominal pain Abdominal Pain HPI - Admitted From Admitted from: ED - History Obtained From History obtained from: Patient, Family Exam limitations: No limitations - History of Present Illness Severity at the worst: Severe Pain Quality: Sharp Context-Pain started w/: Eating Timing: Abrupt onset (1 am) Duration: Hours: (17) Improved with: Nothing Worsened by: Eating, Movement Associated symptoms: Diaphoresis, Vomiting HPI Comment/Other: last small BM overnight, no surgical history PMH/PSH - Past Medical History Cardiovascular: positive: None Respiratory: positive: Sleep apnea, CPAP use Neuro: positive: None Endocrine/Autoimmune: positive: Type 2 diabetes GI: positive: Colon polyps : positive: Benign prostate hypertrophy, Renal insuffiency HEENT: positive: None Psych: positive: None Musculoskeletal: positive: None Derm: positive: None MRSA Hx?: No - Past Surgical History General: positive: Colonoscopy Social & Family Hx - Social History Does the pt smoke?: No Smoking Status: Never smoker Does the pt drink ETOH?: No - POLST Patient has POLST: No Meds/Allgy - Home Medications Home Medications: Ambulatory Orders Medication Instructions Recorded Confirmed metFORMIN [Glucophage] 1,000 mg PO BID 03/04/15 08/25/22 Berberine/ Cinnamon/ Chromium 1 tab PO TID 06/26/18 08/25/22 Cholecalciferol (Vitamin D3) 2,000 unit PO BID 06/26/18 08/25/22 [Vitamin D] Insulin Glargine [Lantus Solostar] 28 units SQ DAILY PM 06/26/18 08/25/22 Krill Oil/[place]-3/Dha/Epa [[place]-3 1 each PO DAILY 06/26/18 08/25/22 Krill Oil Softgel] Magnesium 500 mg PO DAILY 06/26/18 08/25/22 Finasteride [Proscar] 5 mg PO DAILY 10/04/20 08/25/22 Gabapentin [Gralise] 300 mg PO BID 10/04/20 08/25/22 Multivitamin 1 tab PO DAILY 10/04/20 08/25/22 - Allergies Allergies/Adverse Reactions: Allergies Allergy/AdvReac Type Severity Reaction Status Date / Time hydrocodone AdvReac Mild Nausea Verified 11/04/22 15:06 Review of Systems - Gastrointestinal Gastrointestinal: reports: Abdominal pain, Abdominal distention - Genitourinary Genitourinary: reports: Other (bladder stones) - Musculoskeletal Musculoskeletal: reports: Back pain - All Other Systems All Other Systems: reports: Reviewed and negative Exam - Vital Signs Reviewed Vital Signs: Yes Vital Signs: Vital Signs x48h Temp Pulse Resp BP Pulse Ox 11/04/22 17:45 52 L 20 174/67 H 100 11/04/22 14:57 97.0 F L 65 17 155/72 H 95 - Physical Exam General Appearance: positive: No acute distress, Alert Eyes Bilateral: positive: Normal inspection ENT: positive: ENT inspection nml Neck: positive: Nml inspection Respiratory: positive: Chest non-tender Cardiovascular: positive: Regular rate & rhythm Peripheral Pulses: positive: 2+ Abdomen: positive: Tenderness (soft, mildly distended, TTP without evidence of peritonitis) Skin: positive: Color nml, No rash Extremities: positive: Non-tender, Nml appearance Neurologic/Psychiatric: positive: Oriented x3 Results - Lab Results Lab results reviewed: Yes Fish Bones: 11/04/22 15:25 11/04/22 15:25 Other Lab Results: Lab Results x24hrs 11/04/22 11/04/22 11/04/22 Range/Units 15:25 15:25 15:14 WBC 10.6 (4.8-10.8) x10^3/uL RBC 5.66 (4.70-6.10) 10^6/uL Hgb 14.3 (14.0-18.0) g/dL Hct 46.0 (42.0-52.0) % MCV 81.3 (80.0-94.0) fL MCH 25.3 L (27.0-31.0) pg MCHC 31.1 L (32.0-36.0) g/dL RDW 17.2 H (12.0-15.0) % Plt Count 244 (130-450) 10^3/uL MPV 10.5 (7.4-11.4) fL Neut # (Auto) 8.9 H (1.5-6.6) 10^3/uL Lymph # (Auto) 0.8 L (1.5-3.5) 10^3/uL [place] # (Auto) 0.5 (0.0-1.0) 10^3/uL Eos # (Auto) 0.3 (0.0-0.7) 10^3/uL Baso # (Auto) 0.0 (0.0-0.1) 10^3/uL Absolute Nucleated RBC 0.00 x10^3/uL Nucleated RBC % 0.0 /100WBC Sodium 139 (135-145) mmol/L Potassium 4.5 (3.5-5.0) mmol/L Chloride 103 (101-111) mmol/L Carbon Dioxide 27 (21-32) mmol/L Anion Gap 9.0 (6-13) BUN 23 H (6-20) mg/dL Creatinine 0.8 (0.6-1.2) mg/dL Estimated GFR (MDRD) 93 (>89) Glucose 284 H (70-100) mg/dL Calcium 9.5 (8.5-10.3) mg/dL Total Bilirubin 0.7 (0.2-1.0) mg/dL AST 16 (10-42) IU/L ALT 18 (10-60) IU/L Alkaline Phosphatase 103 (42-121) IU/L Total Protein 7.6 (6.7-8.2) g/dL Albumin 4.1 (3.2-5.5) g/dL Globulin 3.5 (2.1-4.2) g/dL Albumin/Globulin Ratio 1.2 (1.0-2.2) Lipase 25 (22-51) U/L Urine Color YELLOW Urine Clarity CLOUDY (CLEAR) Urine pH 6.0 (5.0-7.5) PH Ur Specific [place] >=1.030 H (1.002-1.030) Urine Protein 100 H (NEGATIVE) mg/dL Urine Glucose (UA) 100 H (NEGATIVE) mg/dL Urine Ketones NEGATIVE (NEGATIVE) mg/dL Urine Occult Blood LARGE H (NEGATIVE) Urine Nitrite POSITIVE H (NEGATIVE) Urine Bilirubin NEGATIVE (NEGATIVE) Urine Urobilinogen 0.2 (NORMAL) (NORMAL) E.U./dL Ur Leukocyte Esterase LARGE H (NEGATIVE) Urine RBC 0-5 (0-5) /HPF Urine WBC >25 H (0-3) /HPF Ur Squamous Epith Cells RARE Squamous (<= Few) Urine Bacteria Many H (None Seen) /HPF Urine Yeast PRESENT Ur Microscopic Review INDICATED Urine Culture Comments INDICATED - Diagnostic Imaging Results Diagnostic Imaging Results: positive: Read independently (dilated small bowel 3.3 cm - no evidence of perforation or ischemia) Impression/Plan - Problem List Problem List: Small bowel obstruction: Bowel rest, fluid resuscitation, monitor, serial KUB UTI: antibiotics DM: SSI Plan discussed with the patient and family at the bedside
[2022-11-04 18:31] LABS: CALCIUM 9.3 mg/dL (8.5-10.3); CREATININE 0.9 mg/dL (0.6-1.2); POTASSIUM 4.5 mmol/L (3.5-5.0)
[2022-11-04] MEDS: INSULIN REGULAR HUMAN 300 UNIT/3 ML VIAL SUBQ SCH (19:42)
[2022-11-04] MEDS: SODIUM CHLORIDE 0.9% 1,000 ML IV SCH (19:45)
[2022-11-05] MEDS ORDERED: PANTOPRAZOLE 40 MG VIAL IVP STA (04:02)
[2022-11-05] MEDS: SODIUM CHLORIDE FLUSH 0.9% 10 ML SYRINGE IVP SCH ×3 (04:23→17:04)
[2022-11-05 05:19] LABS: BASOPHILS % (AUTO) 0.4 %; EOSINOPHILS # (AUTO) 0.5 10^3/uL (0.0-0.7); EOSINOPHILS % (AUTO) 5.6 %; HCT - HEMATOCRIT 43.4 % (42.0-52.0); HGB - HEMOGLOBIN 13.6 g/dL (14.0-18.0); LYMPHOCYTES # (AUTO) 0.8 10^3/uL (1.5-3.5); LYMPHOCYTES % (AUTO) 8.4 %; MEAN CORPUSCULAR HEMOGLOBIN 25.3 pg (27.0-31.0); MEAN CORPUSCULAR HGB CONC 31.3 g/dL (32.0-36.0); MEAN CORPUSCULAR VOLUME 80.8 fL (80.0-94.0); MEAN PLATELET VOLUME 10.1 fL (7.4-11.4); MONOCYTES # (AUTO) 0.6 10^3/uL (0.0-1.0); MONOCYTES % (AUTO) 6.3 %; NEUTROPHILS # (AUTO) 7.7 10^3/uL (1.5-6.6); PLT - PLATELET COUNT 211 10^3/uL (130-450); RED BLOOD COUNT 5.37 10^6/uL (4.70-6.10); WHITE BLOOD COUNT 9.7 x10^3/uL (4.8-10.8)
[2022-11-05 05:27] LABS: CALCIUM 9.1 mg/dL (8.5-10.3); CREATININE 0.8 mg/dL (0.6-1.2); POTASSIUM 4.2 mmol/L (3.5-5.0)
[2022-11-05] MEDS: INSULIN REGULAR HUMAN 300 UNIT/3 ML VIAL SUBQ SCH ×3 (05:44→12:14)
[2022-11-05] MEDS: SODIUM CHLORIDE 0.9% 1,000 ML IV SCH ×2 (06:14→16:13)
[2022-11-05] MEDS ORDERED: cefTRIAXone 1 GM in SODIUM CHLORIDE 0.9% MINIBAG 100 ML IV SCH ×2 (09:00→17:09)
--- NOTE | 2022-11-05 10:18 | PROVIDER PROGRESS NOTE ---
Subjective - Review of Systems All Other Systems: positive: Reviewed and negative - Other Other Information/Narrative: Patient feeling much better this AM with only mild abdominal discomfort. He does not feel bloated or nauseated this AM and would like something to drink. He has not had any further nausea or vomiting overnight. Denies flatus or BM since presentation. Objective - Patient Data Reviewed Vital Signs: Yes Vital Signs: Vital Signs x48h Pulse Resp BP Pulse Ox 11/05/22 09:04 58 L 19 159/87 H 98 11/05/22 07:12 62 12 137/80 H 98 11/05/22 05:00 61 15 161/80 H 96 11/05/22 03:00 62 14 145/53 H 94 Weight: Weight 11/03/22 11/04/22 11/05/22 23:59 23:59 23:59 Weight (kg) 127.459 kg Intake & Output: Intake and Output Totals x24h 11/03/22 11/04/22 11/05/22 23:59 23:59 23:59 Intake Total 100 1100 Balance 100 1100 - Lab Results Lab Results: 11/05/22 05:14 11/05/22 05:14 Other Lab Results: Lab Results x24hrs 11/05/22 11/05/22 11/05/22 Range/Units 05:14 05:14 03:44 WBC 9.7 (4.8-10.8) x10^3/uL RBC 5.37 (4.70-6.10) 10^6/uL Hgb 13.6 L (14.0-18.0) g/dL Hct 43.4 (42.0-52.0) % MCV 80.8 (80.0-94.0) fL MCH 25.3 L (27.0-31.0) pg MCHC 31.3 L (32.0-36.0) g/dL RDW 17.0 H (12.0-15.0) % Plt Count 211 (130-450) 10^3/uL MPV 10.1 (7.4-11.4) fL Neut # (Auto) 7.7 H (1.5-6.6) 10^3/uL Lymph # (Auto) 0.8 L (1.5-3.5) 10^3/uL [place] # (Auto) 0.6 (0.0-1.0) 10^3/uL Eos # (Auto) 0.5 (0.0-0.7) 10^3/uL Baso # (Auto) 0.0 (0.0-0.1) 10^3/uL Absolute Nucleated RBC 0.00 x10^3/uL Nucleated RBC % 0.0 /100WBC Sodium 140 (135-145) mmol/L Potassium 4.2 (3.5-5.0) mmol/L Chloride 105 (101-111) mmol/L Carbon Dioxide 28 (21-32) mmol/L Anion Gap 7.0 (6-13) BUN 25 H (6-20) mg/dL Creatinine 0.8 (0.6-1.2) mg/dL Estimated GFR (MDRD) 93 (>89) Glucose 235 H (70-100) mg/dL POC Whole Bld Glucose 188 H (70 - 100) mg/dL Fasting Glucose (70-100) mg/dL Calcium 9.1 (8.5-10.3) mg/dL Total Bilirubin (0.2-1.0) mg/dL AST (10-42) IU/L ALT (10-60) IU/L Alkaline Phosphatase (42-121) IU/L Total Protein (6.7-8.2) g/dL Albumin (3.2-5.5) g/dL Globulin (2.1-4.2) g/dL Albumin/Globulin Ratio (1.0-2.2) Lipase (22-51) U/L Urine Color Urine Clarity (CLEAR) Urine pH (5.0-7.5) PH Ur Specific [place] (1.002-1.030) Urine Protein (NEGATIVE) mg/dL Urine Glucose (UA) (NEGATIVE) mg/dL Urine Ketones (NEGATIVE) mg/dL Urine Occult Blood (NEGATIVE) Urine Nitrite (NEGATIVE) Urine Bilirubin (NEGATIVE) Urine Urobilinogen (NORMAL) E.U./dL Ur Leukocyte Esterase (NEGATIVE) Urine RBC (0-5) /HPF Urine WBC (0-3) /HPF Ur Squamous Epith Cells (<= Few) Urine Bacteria (None Seen) /HPF Urine Yeast Ur Microscopic Review Urine Culture Comments 11/04/22 11/04/22 11/04/22 Range/Units 19:33 18:17 15:25 WBC (4.8-10.8) x10^3/uL RBC (4.70-6.10) 10^6/uL Hgb (14.0-18.0) g/dL Hct (42.0-52.0) % MCV (80.0-94.0) fL MCH (27.0-31.0) pg MCHC (32.0-36.0) g/dL RDW (12.0-15.0) % Plt Count (130-450) 10^3/uL MPV (7.4-11.4) fL Neut # (Auto) (1.5-6.6) 10^3/uL Lymph # (Auto) (1.5-3.5) 10^3/uL [place] # (Auto) (0.0-1.0) 10^3/uL Eos # (Auto) (0.0-0.7) 10^3/uL Baso # (Auto) (0.0-0.1) 10^3/uL Absolute Nucleated RBC x10^3/uL Nucleated RBC % /100WBC Sodium 140 139 (135-145) mmol/L Potassium 4.5 4.5 (3.5-5.0) mmol/L Chloride 103 103 (101-111) mmol/L Carbon Dioxide 32 27 (21-32) mmol/L Anion Gap 5.0 L 9.0 (6-13) BUN 21 H 23 H (6-20) mg/dL Creatinine 0.9 0.8 (0.6-1.2) mg/dL Estimated GFR (MDRD) 81 L 93 (>89) Glucose 256 H 284 H (70-100) mg/dL POC Whole Bld Glucose 243 H (70 - 100) mg/dL Fasting Glucose 256 H (70-100) mg/dL Calcium 9.3 9.5 (8.5-10.3) mg/dL Total Bilirubin 0.7 (0.2-1.0) mg/dL AST 16 (10-42) IU/L ALT 18 (10-60) IU/L Alkaline Phosphatase 103 (42-121) IU/L Total Protein 7.6 (6.7-8.2) g/dL Albumin 4.1 (3.2-5.5) g/dL Globulin 3.5 (2.1-4.2) g/dL Albumin/Globulin Ratio 1.2 (1.0-2.2) Lipase 25 (22-51) U/L Urine Color Urine Clarity (CLEAR) Urine pH (5.0-7.5) PH Ur Specific [place] (1.002-1.030) Urine Protein (NEGATIVE) mg/dL Urine Glucose (UA) (NEGATIVE) mg/dL Urine Ketones (NEGATIVE) mg/dL Urine Occult Blood (NEGATIVE) Urine Nitrite (NEGATIVE) Urine Bilirubin (NEGATIVE) Urine Urobilinogen (NORMAL) E.U./dL Ur Leukocyte Esterase (NEGATIVE) Urine RBC (0-5) /HPF Urine WBC (0-3) /HPF Ur Squamous Epith Cells (<= Few) Urine Bacteria (None Seen) /HPF Urine Yeast Ur Microscopic Review Urine Culture Comments 11/04/22 11/04/22 Range/Units 15:25 15:14 WBC 10.6 (4.8-10.8) x10^3/uL RBC 5.66 (4.70-6.10) 10^6/uL Hgb 14.3 (14.0-18.0) g/dL Hct 46.0 (42.0-52.0) % MCV 81.3 (80.0-94.0) fL MCH 25.3 L (27.0-31.0) pg MCHC 31.1 L (32.0-36.0) g/dL RDW 17.2 H (12.0-15.0) % Plt Count 244 (130-450) 10^3/uL MPV 10.5 (7.4-11.4) fL Neut # (Auto) 8.9 H (1.5-6.6) 10^3/uL Lymph # (Auto) 0.8 L (1.5-3.5) 10^3/uL [place] # (Auto) 0.5 (0.0-1.0) 10^3/uL Eos # (Auto) 0.3 (0.0-0.7) 10^3/uL Baso # (Auto) 0.0 (0.0-0.1) 10^3/uL Absolute Nucleated RBC 0.00 x10^3/uL Nucleated RBC % 0.0 /100WBC Sodium (135-145) mmol/L Potassium (3.5-5.0) mmol/L Chloride (101-111) mmol/L Carbon Dioxide (21-32) mmol/L Anion Gap (6-13) BUN (6-20) mg/dL Creatinine (0.6-1.2) mg/dL Estimated GFR (MDRD) (>89) Glucose (70-100) mg/dL POC Whole Bld Glucose (70 - 100) mg/dL Fasting Glucose (70-100) mg/dL Calcium (8.5-10.3) mg/dL Total Bilirubin (0.2-1.0) mg/dL AST (10-42) IU/L ALT (10-60) IU/L Alkaline Phosphatase (42-121) IU/L Total Protein (6.7-8.2) g/dL Albumin (3.2-5.5) g/dL Globulin (2.1-4.2) g/dL Albumin/Globulin Ratio (1.0-2.2) Lipase (22-51) U/L Urine Color YELLOW Urine Clarity CLOUDY (CLEAR) Urine pH 6.0 (5.0-7.5) PH Ur Specific [place] >=1.030 H (1.002-1.030) Urine Protein 100 H (NEGATIVE) mg/dL Urine Glucose (UA) 100 H (NEGATIVE) mg/dL Urine Ketones NEGATIVE (NEGATIVE) mg/dL Urine Occult Blood LARGE H (NEGATIVE) Urine Nitrite POSITIVE H (NEGATIVE) Urine Bilirubin NEGATIVE (NEGATIVE) Urine Urobilinogen 0.2 (NORMAL) (NORMAL) E.U./dL Ur Leukocyte Esterase LARGE H (NEGATIVE) Urine RBC 0-5 (0-5) /HPF Urine WBC >25 H (0-3) /HPF Ur Squamous Epith Cells RARE Squamous (<= Few) Urine Bacteria Many H (None Seen) /HPF Urine Yeast PRESENT Ur Microscopic Review INDICATED Urine Culture Comments INDICATED - Imaging Results Radiology Imaging: positive: Final report received Imaging Results Comments: reviewed images and report from CT last night. dilated stomach and proximal small bowel. No free air. No significant free fluid. - Current Medications Current Medications: Current Medications Generic Name Dose Route Start Last Admin Trade Name Freq PRN Reason Stop Dose Admin Sodium Chloride 1,000 mls @ 100 mls/hr 11/04/22 19:00 11/05/22 06:14 Normal Saline 0.9% IV 100 mls/hr .Q10H NING Administration Ceftriaxone Sodium 1 gm/ 100 mls @ 200 mls/hr 11/05/22 09:00 11/05/22 10:00 Sodium Chloride IV 11/10/22 08:59 Infused Q24H NING Infusion Insulin Human Regular 0 unit 11/04/22 19:00 11/05/22 06:15 Insulin Regular Human 300 Unit/3 Ml Vial SUBQ 3 unit Q6HR NING Administration Protocol Sodium Chloride 10 ml 11/05/22 01:00 11/05/22 09:29 Sodium Chloride Flush 0.9% 10 Ml Syringe IVP 10 ml 0100,0900,1700 NING Administration - Physical Exam General Appearance: positive: No acute distress, Alert Eyes Bilateral: positive: Normal inspection ENT: positive: Dry mucous membranes Neck: positive: Trachea midline Respiratory: positive: No respiratory distress Cardiovascular: positive: Regular rate & rhythm Abdomen: positive: Non-tender, No distention. negative: Guarding, Rebound Neurologic/Psychiatric: positive: Oriented x3 ABX Reporting Has patient been on IV antibiotics over the past 48 hours?: Yes Impression/Plan - Problem List Problem List: 82 y/o M with: 1. possible small bowel obstruction - pain, nausea markedly improved this AM - no distension, very benign exam this AM - will adat to clears, then soft, if tolerated, likely discharge later today - awaiting a bed in ED 2. UTI - on ceftriaxone while NPO - plan to transition to Augmentin on discharge with plan for total of 5 days. 3. DM - on SSI, plan to restart home meds on discharge 4. MANDI, BPH, chronic renal insufficiency, vitamin d deficiency - restart home meds on discharge - patient may use home CPAP
--- NOTE | 2022-11-05 10:53 | XRAY Report ---
PROCEDURE: Abdomen 2 View X-Ray INDICATIONS: small bowel obstruction TECHNIQUE: 2 views of the abdomen were acquired. COMPARISON: None. FINDINGS: Rounded calcifications project over the right upper quadrant . Gaseous distention of the small bowel measures up to 4 cm with air-fluid levels. No evidence of free air. Degenerative changes noted in the lumbar spine. Contrast in the bladder. IMPRESSION: Persistent small bowel obstruction. Right renal calculi Reviewed by: Nikolas Baeza MD on 11/05/2022 9:52 AM MAYTE Approved by: Nikolas Baeza MD on 11/05/2022 9:52 AM AKAURORA Station ID: [id number]
[2022-11-05 16:05] VITALS: BP 136/56
--- NOTE | 2022-11-05 17:09 | ED Physician Documentation ---
ED Addendum - Addendum Addendum: 11/05/22 17:06 The patient has been evaluated episodically through the day by Dr. Cuevas for surgery. He has been having less abdominal bloating and pain without any nausea or vomiting. He was started on clear liquids this morning and tolerated well and progressed to more regular diet this afternoon. Dr. Cuevas feels the patient is able to be discharged. The patient himself states he is feeling okay with eating. He actually had a bit of a regular diet just now for early dinner and is tolerating it and say is that taste good. He has not had a bowel movement but he is not having distention nor pain and is tolerating regular diet. The bowel obstruction seems to be cleared clinically. He did have a UTI by urinalysis. He had received ceftriaxone yesterday and a dose again just now. Dr. Cuevas asked that I write for Augmentin twice daily for 3 more days for that. The patient and his do feel comfortable with being discharged at this time. Disposition: The patient is discharged home in stable condition Diagnoses: 1. Nausea and vomiting abdominal pain 2. Acute bowel obstruction 3. UTI
[2022-11-06] MEDS ORDERED: cefTRIAXone 1 GM in SODIUM CHLORIDE 0.9% MINIBAG 100 ML IV SCH (17:00)
--- NOTE | 2022-11-07 18:24 | ED Physician Documentation ---
ED Addendum - Addendum Addendum: 11/07/22 18:23 Urine culture came back/growing Citrobacter. It is resistant to cefazolin. He admits to been prescribed Augmentin. We can presume likely resistance. Stop the Augmentin and changed to Cipro 500 mg twice daily for 7 days. This was sent to [facility] pharmacy in [place]. I will have nursing staff notify the patient.
== END 2022-11-05 17:53 | disposition home or self-care (01) ==
LOC: ED 14:52
DX: K56.609 Unspecified intestinal obstruction, unspecified as to partial versus complete obstruction (principal); N30.00 Acute cystitis without hematuria; B96.89 Other specified bacterial agents as the cause of diseases classified elsewhere; Z16.19 Resistance to other specified beta lactam antibiotics; E11.22 Type 2 diabetes mellitus with diabetic chronic kidney disease; N18.9 Chronic kidney disease, unspecified; E55.9 Vitamin D deficiency, unspecified; Z79.84 Long term (current) use of oral hypoglycemic drugs; Z79.4 Long term (current) use of insulin; Z79.899 Other long term (current) drug therapy
CPT/HCPCS: 36415; 74019; 74177; 80048; 80053; 81001; 82947; 83690; 85025; 87077; 87086; 87181; 96365; 96375; 99284; J1815; Q9967; 81003

== ENCOUNTER 2022-11-24 16:00 | Outpatient (CLI) | payer MEDICARE, OTHER | END 2022-11-24 16:15 | disposition home or self-care (01) | LOC: LAB.N 16:00 | PROVIDERS: ATTEND Nurse Practitioner | DX: N39.0 Urinary tract infection, site not specified (principal) | CPT/HCPCS: 87077; 87086; 87181 ==

== ENCOUNTER 2023-01-03 08:00 | Outpatient (CLI) | payer MEDICARE, OTHER ==
[2023-01-03 16:38] LABS: BILIRUBIN,URINE NEGATIVE (NEGATIVE); GLUCOSE, URINE (UA) 250 mg/dL (NEGATIVE); KETONES,URINE (UA) NEGATIVE (NEGATIVE); LEUKOCYTE ESTERASE, URINE LARGE (NEGATIVE); NITRITE,URINE NEGATIVE (NEGATIVE); OCCULT BLOOD,URINE MODERATE (NEGATIVE); PH,URINE 5.5 PH (5.0-7.5); PROTEIN,URINE 100 mg/dL (NEGATIVE); UROBILINOGEN,URINE 0.2 (NORMAL) E.U./dL (NORMAL)
[2023-01-03 16:46] LABS: CLARITY,URINE CLOUDY (CLEAR)
[2023-01-03 17:03] LABS: BACTERIA,URINE Few /HPF (None Seen); SQUAMOUS EPITHELIAL CELL,UR FEW Squamous (<= Few); WBC,URINE >25 /HPF (0-3); YEAST,URINE PRESENT
== END 2023-01-03 23:59 | disposition home or self-care (01) ==
LOC: LAB 08:00
PROVIDERS: ATTEND Urology
DX: R35.0 Frequency of micturition (principal)
CPT/HCPCS: 81001; 87077; 87086; 87181

== ENCOUNTER 2023-06-06 11:35 | Outpatient (CLI) | payer MEDICARE, OTHER ==
--- NOTE | 2023-06-06 11:53 | Sleep Patient Instructions ---
Sleep Center Visit Summary - Patient Visit Information Reason for Visit: Annual Visit - Patient Instructions Additional Instructions: You will continue with CPAP therapy with pressure set at 12-14 cmH2O. A supply prescription will be updated with your DME. We encourage you to continue to try to lose weight. Please follow up with the sleep care office in 1 year. - Clinic Information Contact: [facility] [address] [place] [address] [email or web address] T: [phone]
--- NOTE | 2023-06-06 11:58 | SLEEP CARE CONSULTATION ---
Information from patient questionnaire entered by Jory Loya. I have reviewed and concur with the information entered by Jory Loya. This document represents the service I personally performed and the decisions made by me, Sandy Ponce ARNP. History of Present Illness Service Date and Time: 06/06/2023 1135 Previous diagnosis: Moderate, Obstructive Sleep Apnea-Hypopnea Syndrome AHI: 26.4 (in 2008) Reason for follow up: annual (LAST SEEN 06/12) Equipment type: CPAP (Darrion Dreamstation 2, need machine) Equipment obtained from: Other ([facility]; getting supplies as needed) Mask style: Nasal pillows Backup mask available: Yes Last cushion change: 3 weeks ago Prior sleep studies: Yes Year and Where: 2008 - [facility] HPI additional information: ROCHELLE VERDUGO was diagnosed to have moderate, AHI 26.4, obstructive sleep apnea- hypopnea syndrome and returned today for CPAP therapy annual follow-up. Sleep Study - Results Prior sleep studies: Yes [facility] and [facility] 2008 [facility] Compliance Data - Data Reviewed with Patient Average duration of nightly device use: 7 HRS 36 MINS 24 SECS Compliance rate %: 98.6 (06/23/22-06/03/23; 344/346 days used) Current pressure setting (cmH2O): 12-14 Average residual AHI: 8.7 Central apnea: 0.7 Obstructive apnea: 1.6 Hypopnea: 6.4 Average large leak: 41 mins 32 secs Subjective Patient concerns: reports: mask leak noise. denies: aerophagia, mask discomfort, air blowing in eyes, condensation in mask/hose, nasal congestion, dry mouth, nose, throat, epistaxis Observed to snore while using device: No Current pressure setting perceived as: comfortable On therapy, patient: reports: sleeping better, awakening more refreshed, being more awake and alert during the day, more rested overall. denies: drowsiness while driving Initial Rankin Sleepiness Scale score: 12 (in 2008) Current Rankin Sleepiness Scale score: 6 (06/06/23) Allergies and Home Medications Known drug allergies: Yes (as listed) Drug allergies reviewed: Yes Home medication list reviewed: Yes (no changes) Allergy and home medication list: Allergies hydrocodone Adverse Reaction (Mild, Verified 06/05/23 13:07) Nausea Nausea but reports he can take Review of Systems Review of systems same as previous: Yes (NO CHANGE) Physical Exam Vital signs obtained and entered by: JORY Plaza MA Blood Pressure: 168/74 (LEFT ARM) Cuff size: regular Heart Rate: 56 O2 Saturation: 96 Height: 6 ft 3 in Weight: 282 lb 6.4 oz Body Mass Index: 35.3 BMI Classification: Obese Impression and Plan 1. Obstructive Sleep Apnea-Hypopnea Syndrome, moderate, with good treatment compliance and fair apnea control with elevated residual AHI. On CPAP therapy, the patient has better sleep quality and is more rested overall. The patients pressure is slightly ineffective but he does have significant improvement of his sleep apnea. Patient states that he and the previous provider were changing his pressure and this was the most comfortable pressure with the best control of his events. He does have mostly elevated hypopneas and a large leak over 40 minutes. He does not change his nasal pillow cushion often enough and I encouraged him to change it more regularly to help reduce leaking. This can also be a contributor to elevated residual AHI. Patient advised to contact me if pressure change is uncomfortable so that it can be adjusted. Goals for apnea control discussed. Patient's apnea severity and rationale for treatment to reduce apnea, improve sleep quality and reduce cardiovascular and cerebrovascular events was reviewed. I also reviewed the benefit of consistent device use of CPAP for hypertension and diabetes. 2. Obesity, unspecified. Currently patients BMI is 35.3. Obesity increases the risk of apnea, CPAP pressure requirements and overall health risks especially cardiovascular and diabetes. Thus patient is advised to lose weight. * Continue auto CPAP pressure at 12-14 cmH2O * Update supply prescription * Notify me if snoring with mask or feeling that the pressure is too much or too little * Attempt to lose weight * Call this office if any problems using CPAP * Return for follow up in 12 months, or sooner if concerns arise Counseling Topics: Spare mask, Weight loss health impact Prescriptions: Device supplies Follow up with Sleep Care in: 1 year Visit Type: In Office Time Spent with Patient (minutes): 23 Provider Statement: I spent 100% of the Face to Face Visit with the patient with greater than 50% spent counseling the patient and coordination of care.
[2023-06-06 12:02] VITALS: BP 168/74; O2SAT 96
== END 2023-06-06 11:36 | disposition home or self-care (01) ==
LOC: SC 11:35
PROVIDERS: ATTEND Nurse Practitioner Family
DX: G47.33 Obstructive sleep apnea (adult) (pediatric) (principal); E66.9 Obesity, unspecified; Z68.35 Body mass index [BMI] 35.0-35.9, adult
CPT/HCPCS: 99213; G0463; 99212

== ENCOUNTER 2023-08-28 08:01 | Outpatient (CLI) | payer MEDICARE, OTHER ==
[2023-08-28 08:25] LABS: BASOPHILS # (AUTO) 0.1 10^3/uL (0.0-0.1); BASOPHILS % (AUTO) 1.2 %; EOSINOPHILS # (AUTO) 0.3 10^3/uL (0.0-0.7); EOSINOPHILS % (AUTO) 4.9 %; HCT - HEMATOCRIT 44.5 % (42.0-52.0); LYMPHOCYTES # (AUTO) 1.2 10^3/uL (1.5-3.5); LYMPHOCYTES % (AUTO) 20.1 %; MEAN CORPUSCULAR HEMOGLOBIN 28.2 pg (27.0-31.0); MEAN CORPUSCULAR HGB CONC 31.5 g/dL (32.0-36.0); MEAN CORPUSCULAR VOLUME 89.5 fL (80.0-94.0); MEAN PLATELET VOLUME 10.5 fL (7.4-11.4); MONOCYTES # (AUTO) 0.4 10^3/uL (0.0-1.0); MONOCYTES % (AUTO) 7.7 %; NEUTROPHILS # (AUTO) 3.8 10^3/uL (1.5-6.6); NEUTROPHILS % (AUTO) 65.8 %; PLT - PLATELET COUNT 195 10^3/uL (130-450); RED BLOOD COUNT 4.97 10^6/uL (4.70-6.10); RED CELL DISTRIBUTION WIDTH 15.9 % (12.0-15.0); WHITE BLOOD COUNT 5.7 x10^3/uL (4.8-10.8)
[2023-08-28 08:40] LABS: MICROALBUM/CREATININE RATIO,UR 475.3 ug/mg (<30.0); MICROALBUMIN,URINE 36.6 mg/dL
[2023-08-28 08:42] LABS: ALBUMIN 3.9 g/dL (3.2-5.5); ALBUMIN/GLOBULIN RATIO 1.4 (1.0-2.2); ALKALINE PHOSPHATASE 87 IU/L (42-121); ALT ALANINE AMINOTRANSFERASE 13 IU/L (10-60); AST ASPARTATE AMINOTRANSFERASE 11 IU/L (10-42); BILIRUBIN,TOTAL 0.5 mg/dL (0.2-1.0); BUN - BLOOD UREA NITROGEN 29 mg/dL (6-20); CALCIUM 9.7 mg/dL (8.5-10.3); CARBON DIOXIDE - CO2 35 mmol/L (21-32); CHLORIDE 103 mmol/L (101-111); CHOL/HDL RATIO 4.6 (<5.0); CHOLESTEROL 142 mg/dL; GFR - MDRD 72 (>89); GLUCOSE 198 mg/dL (74-104); HDL CHOLESTEROL 31 mg/dL; LDL CHOLESTEROL,CALCULATED 82 mg/dL; LDL/HDL RATIO 2.6 (<3.6); POTASSIUM 4.8 mmol/L (3.5-4.5); SODIUM 141 mmol/L (135-145); TOTAL PROTEIN 6.7 g/dL (6.4-8.9); TRIGLYCERIDES 144 mg/dL (48-352); VLDL CHOLESTEROL 29 mg/dL
[2023-08-28 08:51] LABS: THYROID STIMULATING HORMONE 9.31 uIU/mL (0.34-5.60)
[2023-08-28 09:31] LABS: ESTIMATED AVERAGE GLUCOSE 186 mg/dL (70-100); HEMOGLOBIN A1c% 8.1 % (4.27-6.07)
== END 2023-08-28 08:02 | disposition home or self-care (01) ==
LOC: LAB 08:01
PROVIDERS: ATTEND Family Medicine
DX: Z12.5 Encounter for screening for malignant neoplasm of prostate (principal); E03.9 Hypothyroidism, unspecified; E11.40 Type 2 diabetes mellitus with diabetic neuropathy, unspecified; Z79.4 Long term (current) use of insulin
CPT/HCPCS: 36415; 80053; 80061; 82043; 82570; 83036; 84439; 84443; 85025; G0103; 83721; 84153

== ENCOUNTER 2023-12-07 08:13 | Outpatient (CLI) | payer MEDICARE, OTHER ==
[2023-12-07 08:41] LABS: CALCIUM 9.6 mg/dL (8.5-10.3); CREATININE 0.9 mg/dL (0.6-1.3); POTASSIUM 4.4 mmol/L (3.5-4.5)
[2023-12-07 08:54] LABS: MICROALBUM/CREATININE RATIO,UR 287.5 ug/mg (<30.0); MICROALBUMIN,URINE 20.7 mg/dL
[2023-12-07 08:57] LABS: THYROID STIMULATING HORMONE 3.97 uIU/mL (0.34-5.60)
[2023-12-07 20:45] LABS: ESTIMATED AVERAGE GLUCOSE 163 mg/dL (70-100); HEMOGLOBIN A1c% 7.3 % (4.27-6.07)
== END 2023-12-07 08:14 | disposition home or self-care (01) ==
LOC: LAB 08:13
PROVIDERS: ATTEND Family Medicine
DX: E03.9 Hypothyroidism, unspecified (principal); E11.9 Type 2 diabetes mellitus without complications; E66.9 Obesity, unspecified; Z79.4 Long term (current) use of insulin
CPT/HCPCS: 36415; 80048; 82043; 82570; 83036; 84439; 84443; 84481

== ENCOUNTER 2023-12-17 17:46 | Outpatient (CLI) | payer MEDICARE, OTHER ==
--- NOTE | 2023-12-17 21:07 | XRAY Report ---
PROCEDURE: Chest 2V INDICATIONS: COUGH,FINE RESPIRATORY CRACKLES TECHNIQUE: 2 views of the chest were acquired. COMPARISON: Chest x-ray 03/27/2016 FINDINGS: Surgical changes and devices: None. Lungs and pleura: Minimal costophrenic angles are present bilaterally. Mediastinum: Mediastinal contours appear normal. Heart size is mildly enlarged. Bones and chest wall: No suspicious bony lesions. Overlying soft tissues appear unremarkable. IMPRESSION: Minimal costophrenic angle blunting suggestive scarring versus minimal effusions. Reviewed by: Jazmín Epperson MD on 12/17/2023 9:06 PM PDT Approved by: Jazmín Epperson MD on 12/17/2023 9:06 PM PDT Station ID: [id number]
== END 2023-12-17 17:47 | disposition home or self-care (01) ==
LOC: DI 17:46
PROVIDERS: ATTEND Family Medicine
DX: R05.9 Cough, unspecified (principal); R09.89 Other specified symptoms and signs involving the circulatory and respiratory systems

== ENCOUNTER 2023-12-26 10:57 | Outpatient (CLI) | payer MEDICARE, OTHER | END 2023-12-26 10:58 | disposition home or self-care (01) | LOC: LAB.R 10:57 | PROVIDERS: ATTEND Podiatrist | DX: E11.622 Type 2 diabetes mellitus with other skin ulcer (principal) | CPT/HCPCS: 87070; 87205 ==

== ENCOUNTER 2024-02-01 08:09 | Outpatient (CLI) | payer MEDICARE, OTHER ==
[2024-02-01 08:24] LABS: BASOPHILS # (AUTO) 0.1 10^3/uL (0.0-0.1); BASOPHILS % (AUTO) 1.2 %; EOSINOPHILS # (AUTO) 0.3 10^3/uL (0.0-0.7); EOSINOPHILS % (AUTO) 5.1 %; HCT - HEMATOCRIT 45.5 % (42.0-52.0); HGB - HEMOGLOBIN 14.1 g/dL (14.0-18.0); LYMPHOCYTES # (AUTO) 1.3 10^3/uL (1.5-3.5); LYMPHOCYTES % (AUTO) 22.1 %; MEAN CORPUSCULAR HEMOGLOBIN 27.9 pg (27.0-31.0); MEAN CORPUSCULAR VOLUME 90.1 fL (80.0-94.0); MEAN PLATELET VOLUME 9.7 fL (7.4-11.4); MONOCYTES # (AUTO) 0.5 10^3/uL (0.0-1.0); MONOCYTES % (AUTO) 7.7 %; NEUTROPHILS # (AUTO) 3.7 10^3/uL (1.5-6.6); NEUTROPHILS % (AUTO) 63.6 %; PLT - PLATELET COUNT 192 10^3/uL (130-450); RED BLOOD COUNT 5.05 10^6/uL (4.70-6.10); RED CELL DISTRIBUTION WIDTH 16.4 % (12.0-15.0); WHITE BLOOD COUNT 5.9 x10^3/uL (4.8-10.8)
[2024-02-01 08:37] LABS: ALBUMIN/GLOBULIN RATIO 1.7 (1.0-2.2); BILIRUBIN,TOTAL 0.6 mg/dL (0.2-1.0); CALCIUM 9.4 mg/dL (8.5-10.3); CREATININE 0.9 mg/dL (0.6-1.3); POTASSIUM 4.1 mmol/L (3.5-4.5); TOTAL PROTEIN 6.4 g/dL (6.4-8.9)
[2024-02-01 11:36] LABS: ESTIMATED AVERAGE GLUCOSE 151 mg/dL (70-100); HEMOGLOBIN A1c% 6.9 % (4.27-6.07)
== END 2024-02-01 08:10 | disposition home or self-care (01) ==
LOC: LAB 08:09
PROVIDERS: ATTEND Family Medicine
DX: E11.65 Type 2 diabetes mellitus with hyperglycemia (principal); E03.9 Hypothyroidism, unspecified; Z79.4 Long term (current) use of insulin; I83.10 Varicose veins of unspecified lower extremity with inflammation; I10 Essential (primary) hypertension
CPT/HCPCS: 36415; 80053; 83036; 85025